=== PATIENT | female | born 1930 | race African-American/Black ===

== ENCOUNTER 2017-05-10 06:08 | Inpatient (IN) ==
--- NOTE | 2017-05-04 13:03 | EKG Report ---
Test Performed on : 05/04/2017 12:55:42 PM Test Reason : PAT Blood Pressure : / mmHG Vent. Rate : 081 BPM Atrial Rate : 081 BPM P-R Int : 154 ms QRS Dur : 072 ms QT Int : 374 ms P-R-T Axes : 060 -17 052 degrees QTc Int : 434 ms Normal sinus rhythm. Possible Left atrial enlargement Anterior infarct , age undetermined Abnormal ECG When compared with ECG of 03-MAY-2016 06:08, premature supraventricular complexes. are no longer present Anterior infarct is now present Criteria for Inferior infarct are no longer present T wave inversion no longer evident in Inferior leads Confirmed by Bhupendra CASTAÑEDA, Trenton Borjas ([id number]) on 05/06/2017 9:13:07 AM
[2017-05-04 13:13] LABS: MANUAL DIFF NEEDED? NO; URINE MICRO REVIEW NEEDED? NO; URINE SOURCE CLEAN CATCH
[2017-05-04 13:26] LABS: BASO% 0.4 % (0.0-0.8); EOS# 0.14 X1000 (0.0-0.7); EOS% 1.1 % (0.0-10.0); HEMATOCRIT 40.6 % (37.0-47.0); HEMOGLOBIN 13.1 g/dL (12.0-16.0); IMM GRAN# 0.03 X1000 (0.0-0.04); IMM GRAN% 0.2 % (0.0-0.5); LYMPH# 2.42 X1000 (1.2-3.4); LYMPH% 19.4 % (20.5-51.1); MCH 28.4 PG (27-31); MCHC 32.3 g/dL (33-37); MCV 88.1 FL (81-99); MONO# 0.86 X1000 (0.11-0.59); MONO% 6.9 % (1.7-9.3); MPV 10.2 FL (7.4-10.4); PLT 277 X1000 (130-400); RBC 4.61 XMIL (4.2-5.4)
[2017-05-04 13:34] LABS: BILIRUBIN URINE NEGATIVE (NEGATIVE); BLOOD URINE TRACE (NEGATIVE); COLOR YELLOW; GLUCOSE URINE NEGATIVE (NEGATIVE); LEUKOCYTES URINE NEGATIVE (NEGATIVE); NITRITE URINE NEGATIVE (NEGATIVE); PH URINE 5.5; PROTEIN URINE NEGATIVE (NEGATIVE); SP GRAVITY URINE 1.018; TURBIDITY URINE CLEAR (CLEAR); UROBILINOGEN URINE NORMAL (NORMAL)
[2017-05-04 13:39] LABS: UR EPITHELIAL CELLS <10 /HPF (<10); URINE BACTERIA 2+ /HPF; URINE RBC <10 /HPF (<10); URINE WBC <10 /HPF (<10)
[2017-05-04 13:42] LABS: INR 1.04; PROTIME 10.9 Seconds (9.2-11.7); PTT 28.1 Seconds (22.0-36.0)
[2017-05-04 14:02] LABS: AGAP 13; BUN 13 mg/dL (8-22); CALCIUM 9.2 mg/dL (8.8-10.2); CHLORIDE 96 mmol/L (98-107); COSMO 271; POTASSIUM 3.9 mmol/L (3.5-5.1); SODIUM 135 mmol/L (136-145); TCO2 26 mmol/L (25-35)
[2017-05-10] MEDS ORDERED: LYRICA ONE (07:11)
[2017-05-10] MEDS ORDERED: CELEBREX ONE (07:11)
[2017-05-10] MEDS ORDERED: REGLAN ONE (07:11)
[2017-05-10] MEDS ORDERED: COLACE ONE (07:11)
[2017-05-10] MEDS ORDERED: PEPCID ONE (07:11)
[2017-05-10] MEDS ORDERED: LR 1,000 ML ONE ×2 (07:12→14:48)
[2017-05-10] MEDS ORDERED: MORPHINE IV PRN (07:13)
[2017-05-10] MEDS ORDERED: KEFZOL 1 GM/D5W 1 GM/50 ML IVPB ONE (07:16)
[2017-05-10] MEDS ORDERED: VANCOMYCIN ONE (08:44)
[2017-05-10] MEDS ORDERED: MARCAINE 0.25% PF/EPI 1:200,000 ONE (08:44)
[2017-05-10] MEDS ORDERED: FENTANYL ONE (08:44)
[2017-05-10] MEDS ORDERED: DIPRIVAN 1% 500 MG/50 ML BOTTLE ONE (08:44)
[2017-05-10] MEDS ORDERED: TORADOL ONE (08:44)
[2017-05-10] MEDS ORDERED: SODIUM CHLORIDE 0.9% ONE (08:45)
[2017-05-10] MEDS ORDERED: CYKLOKAPRON 1,000 MG/NS 1,000 MG/100 ML IVPB ONE ×2 (08:45)
[2017-05-10] MEDS ORDERED: EXPAREL 1.3% ONE (08:45)
[2017-05-10] MEDS ORDERED: NEOSPORIN G.U. IRRIGANT ONE (08:45)
[2017-05-10 10:05] LABS: URINE MICRO REVIEW NEEDED? NO; URINE SOURCE CATH
[2017-05-10 10:09] LABS: BILIRUBIN URINE NEGATIVE (NEGATIVE); BLOOD URINE NEGATIVE (NEGATIVE); COLOR YELLOW; GLUCOSE URINE NEGATIVE (NEGATIVE); LEUKOCYTES URINE NEGATIVE (NEGATIVE); NITRITE URINE NEGATIVE (NEGATIVE); PH URINE 5.5; PROTEIN URINE NEGATIVE (NEGATIVE); SP GRAVITY URINE 1.015; TURBIDITY URINE CLEAR (CLEAR); UROBILINOGEN URINE NORMAL (NORMAL)
[2017-05-10 10:10] LABS: UR EPITHELIAL CELLS <10 /HPF (<10); URINE BACTERIA 1+ /HPF; URINE RBC <10 /HPF (<10); URINE WBC <10 /HPF (<10)
[2017-05-10] MEDS ORDERED: NS 1,000 ML ONE (11:53)
--- NOTE | 2017-05-10 12:46 | Diag Imaging Result Doc PS360 ---
EXAM: KNEE 1-2 VIEWS-RIGHT INDICATION: tka TECHNIQUE: 2 views COMPARISON: None. FINDINGS: There has been a recent right knee arthroplasty. The arthroplasty hardware is in the expected position. There is no evidence of periprosthetic fracture. There are anterior skin keith and a drainage catheter is in place. IMPRESSION: Satisfactory postoperative knee. Electronically signed by Thai Cary 05/10/2017 12:44 PM
--- NOTE | 2017-05-10 13:28 | OPERATIVE NOTE ---
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 PROCEDURE: Right total knee replacement with stemmed prosthesis. SURGEON: Nghia Pettit MD. INTERNAL SALES: Richard Hernandez. ANESTHESIA: Spinal. COMPLICATION: None. PROCEDURE IN DETAIL: This 87-year-old female presents for right total knee replacement. Risks, benefits, and no guarantees were discussed, and she is willing to proceed. She was taken to the operating room and satisfactory anesthesia obtained. The right knee was prepped and draped in usual sterile fashion. A time-out was taken to confirm operative site, procedure, and patient. The leg was wrapped with an Esmarch. Tourniquet inflated to 350 mmHg. A midline incision was made over the right knee and a medial quad tendon sparing arthrotomy created. The patella was everted and resurfaced with freehand technique. This was later sized to a size 35 dome patella and drill paddle prepared for the patellar implant. With the patella subluxed laterally, an intramedullary hole was made in the distal femur and the distal femoral cutting block secured in 5 degrees of valgus. Femoral resection was then made and any osteophytes debrided about the femur. The tibial cutting block was then secured and the tibial resection made using extramedullary alignment hazel. After resection of the tibia, the IT band and lateral retinacular structures were slightly released to improve soft tissue balance to the valgus deformity. Sequential reaming of the tibia was then undertaken up to a 20 reamer. A sequential broaching for revision stem system was then undertaken up to a size 45 metaphyseal sleeve using the [employer] TC 3 revision system. A 20 mm short stem attached to a 45 metaphyseal sleeve and a size 3 tibial base plate were selected with good coverage and stability. Using the tibial cut surface and base plate to tension the soft tissue, the femoral block was secured in the proper rotation and the femur sized to a 2.5 femoral implant. The anterior, posterior and chamfer cuts were sequentially made in the femur followed by box cut for the posterior stabilized design. Any remaining osteophytes were debrided. The femur was then reamed to a 20 mm shaft reamer and metaphyseal broach up to a size 45 femoral sleeves. The femoral trial was placed and a 15 mm poly inserted with good range of motion and stability and midline patellar tracking. Good correction of the valgus deformity was achieved. The trial implants were removed. The bony surfaces thoroughly irrigated with pulsatile lavage. The stemmed tibia and femoral implants were assembled on the back table properly. Cement with a gram of vancomycin was then used to cement the tibial tray followed by the femoral stem and the dome patella into position. While the cement cured, the joint capsule was injected with Exparel for pain management and Hemovac drain placed. After curing of the cement, a 15 mm size 2.5, TC 3 rotating platform poly was secured in the tibial tray and the knee reduced. Final range of motion was 0-120 degrees with midline patellar tracking and good soft tissue balance, as well as correction of valgus deformity. The arthrotomy was copiously irrigated with irrigant and closed over the drain with #1 Vicryl in the arthrotomy, 2-0 Vicryl in the subcutaneous, and skin keith on the skin edges. Sterile dressings completed the closure and the patient was recovered from anesthesia and transferred to the recovery room in stable condition. No intraoperative complications were noted. Instrument count and sponge count was correct at time of closure. cc: Thai Pettit MD
--- NOTE | 2017-05-10 14:32 | PROGRESS NOTE ---
DATE: 05/10/2017 Ms Wilson is seen for postop care status post a total joint replacement. At the present time she is afebrile. The incision and bandage are clean and dry. She is motor and sensory intact. Presently she is stable. She has minimal complaints. cc: Thai Pettit MD
[2017-05-10] MEDS ORDERED: XYLOCAINE-MPF 2% ONE (14:48)
[2017-05-10] MEDS ORDERED: DECADRON ONE (14:48)
[2017-05-10] MEDS ORDERED: ZEMURON ONE (14:48)
[2017-05-10] MEDS ORDERED: OFIRMEV 1000 MG/ISOTONIC SOLN 1,000 MG/100 ML BOTTLE ONE (14:48)
[2017-05-10] MEDS: COLACE PO SCH ×2 (14:52→21:15)
[2017-05-10] MEDS: CELEBREX PO SCH (14:53)
[2017-05-10] MEDS: NS 1,000 ML IV SCH ×2 (15:00→21:14)
[2017-05-10] MEDS: NORCO-10 PO PRN ×2 (16:14→21:15)
[2017-05-10] MEDS: KEFZOL 1 GM/D5W 1 GM/50 ML IVPB IV SCH (16:15)
[2017-05-10] MEDS: LOTREL 5/20 MG PO SCH ×2 (18:51→21:15)
--- NOTE | 2017-05-10 21:11 | CONSULTATION ---
DATE OF CONSULTATION: 05/10/2017 HISTORY OF PRESENT ILLNESS: I was asked to see postoperative medical management. This pleasant lady had right knee arthroplasty with significant osteoarthritis and valgus deformity by Dr. Dykes. Postoperatively patient is not complaining other than some pain, denies of any chest pain, shortness of breath. PAST MEDICAL HISTORY: Atypical chest pain. Last stress test was 2009, hypertension, right ganglion wrist, osteoarthritis in both knees, vitamin D deficiency. PAST SURGICAL HISTORY: Recent right knee arthroplasty. MEDICINES: Aspirin 80 mg daily, Lotrel 5/20 daily, Mobic 15 daily, vitamin D 50 ,000 once a week. ALLERGIES: Not known. SOCIAL HISTORY: , lives in [place]. No smoking. No alcohol. FAMILY HISTORY: Father of stroke at 72, mom of old age at the age of 102. REVIEW OF SYSTEMS: HEENT: No headache, no vision problem. No earache. No sore throat. Neck: No goiter. No lymphadenopathy. No bruit. Cardiopulmonary: No chest pain, shortness of breath, PND, orthopnea. GI: No nausea, vomiting, abdominal pain. : No history of hesitancy, frequency. Extremities: Right knee was operated. Neurological: No focal deficits or weakness. PHYSICAL EXAMINATION: Vital signs: Afebrile, blood pressure is stable, 2 L nasal cannula 100%. HEENT Exam: Within normal limits. Neck: Supple. No lymphadenopathy. No goiter. Chest: Bilateral air entry. No rales, no wheezing. Heart: Sounds are regular. Belly: Is soft, nontender. Good bowel sounds. No masses palpable. Neurological: No deficits. INVESTIGATIONS: CBC. White cell count 12, hematocrit 40, platelets 277,000. PT/INR is normal. SMA 7 is normal. Urinalysis is clear. ASSESSMENT AND PLAN: 1. Postoperatively after right knee arthroplasty. Patient is doing very well. Follow up on the labs in the morning. Control the pain with Celebrex, [place]. 2. Hypertension, is on Lotrel. 3. Deep vein thrombosis prophylaxis on Xarelto. 4. Ancillary support incentive spirometry. Discussed with the family. Follow up on the labs and they will decide soon whether go for rehab or home. Once again, thanks for the kind referral. cc: MD Thai Lawson MD MTDD
[2017-05-10] MEDS: PERIDEX MT SCH (21:15)
[2017-05-11] MEDS: KEFZOL 1 GM/D5W 1 GM/50 ML IVPB IV SCH (00:48)
[2017-05-11] MEDS: NORCO-10 PO PRN ×4 (05:09→21:46)
[2017-05-11] MEDS: XARELTO PO SCH (05:09)
[2017-05-11] MEDS: NS 1,000 ML IV SCH ×2 (05:12→18:52)
[2017-05-11 05:34] LABS: HEMATOCRIT 31.2 % (37.0-47.0); HEMOGLOBIN 9.8 g/dL (12.0-16.0)
[2017-05-11 06:06] LABS: AGAP 11; BUN 16 mg/dL (8-22); CALCIUM 8.8 mg/dL (8.8-10.2); CHLORIDE 102 mmol/L (98-107); COSMO 279; POTASSIUM 5.1 mmol/L (3.5-5.1); SODIUM 138 mmol/L (136-145); TCO2 25 mmol/L (25-35)
[2017-05-11] MEDS: CELEBREX PO SCH (08:56)
[2017-05-11] MEDS: LOTREL 5/20 MG PO SCH (08:56)
[2017-05-11] MEDS: PERIDEX MT SCH ×2 (08:57→21:46)
[2017-05-11] MEDS: COLACE PO SCH ×2 (08:57→21:46)
--- NOTE | 2017-05-11 09:12 | PROGRESS NOTE ---
DATE: 05/11/2017 SUBJECTIVE: Postop day 1 right knee replacement. REVIEW OF SYSTEMS: None reported. No chest pain, shortness of breath. PHYSICAL EXAMINATION: Vital Signs: Afebrile. Vitals are stable. HEENT: Within normal limits. Chest: Clear. Heart: Sounds are regular. Belly is soft, nontender. Good bowel sounds. Neurologic: Nonfocal. INVESTIGATIONS: Hematocrit 32, SMA-7 is normal. Urinalysis is clear. ASSESSMENT AND PLAN: 1. Status post right knee arthroplasty; doing well. 2. Hypertension, controlled. 3. Deep venous thrombosis prophylaxis, on Xarelto. Pain is good on Celebrex and hydrocodone. Continue present medical therapy. Family will decide on Tuesday to go for rehab or going home with outpatient care. LEVEL OF DOCUMENTATION: 10 minutes. cc: MD Thai Lawson MD
[2017-05-11] MEDS: TYLENOL PO PRN (12:01)
[2017-05-11] MEDS ORDERED: ZOFRAN PO PRN (17:04)
[2017-05-11] MEDS ORDERED: ZOFRAN PO ONE (17:04)
[2017-05-12] MEDS: LOTREL 5/20 MG PO SCH ×3 (00:10→21:51)
[2017-05-12] MEDS: NORCO-10 PO PRN ×4 (03:40→17:00)
[2017-05-12 06:17] LABS: HEMATOCRIT 25.8 % (37.0-47.0); HEMOGLOBIN 8.1 g/dL (12.0-16.0)
[2017-05-12] MEDS: XARELTO PO SCH (06:33)
[2017-05-12] MEDS: CELEBREX PO SCH ×2 (08:07→10:55)
[2017-05-12] MEDS: COLACE PO SCH ×2 (08:07→21:51)
[2017-05-12] MEDS: PERIDEX MT SCH ×2 (08:08→21:51)
[2017-05-12] MEDS ORDERED: VENOFER IV ONE (08:55)
--- NOTE | 2017-05-12 09:16 | PROGRESS NOTE ---
DATE: 05/12/2017 SUBJECTIVE: The patient was confused last night. Mental status is clear, and the rest of the review of systems are normal. OBJECTIVE: Vital Signs: On exam, she is afebrile. Vitals are stable. Input and output are positive. HEENT exam: Slightly pale. Neck: Supple. Chest: Clear. Heart: Sounds are regular. Abdomen: Belly is soft, nontender. Good bowel sounds. Neurologic exam: Nonfocal. INVESTIGATIONS: Hematocrit 25. SMA 7 is normal. ASSESSMENT AND PLAN: 1. Delirium. This is not uncommon. Talked to the family. 2. Out of the bed with physical therapy. 3. Anemia due to blood loss. We will give iron infusion today. 4. Hypertension is well controlled. Out of the bed twice a day. Discussed with the family. We will follow up about disposition tomorrow. LEVEL OF DOCUMENTATION: 25 minutes. cc: MD Thai Lawson MD
[2017-05-12] MEDS ORDERED: VENOFER 300 MG in NS 250 ML IV ONE (10:00)
--- NOTE | 2017-05-12 12:43 | PROGRESS NOTE ---
DATE: 05/12/2017 SUBJECTIVE: Ms. Wilson is seen today, postop day 2 status post total knee replacement. OBJECTIVE: Currently, she is awake, afebrile, and appropriate. She had some confusion earlier today. Hematocrit was down to 25, but she is receiving packed red blood cells. At the present time, the incision is clean and dry. There are no signs of infection or DVT. She is slowly mobilized. We discussed going to inpatient rehab tomorrow. Will make arrangements and plan for inpatient rehab at [facility] tomorrow. cc: Thai Pettit MD
[2017-05-13] MEDS ORDERED: BLISTEX MEDICATED BERRY LIP BALM TOP PRN (00:18)
[2017-05-13 06:01] LABS: MANUAL DIFF NEEDED? NO
[2017-05-13 06:36] LABS: AGAP 10; BUN 12 mg/dL (8-22); CALCIUM 8.8 mg/dL (8.8-10.2); CHLORIDE 99 mmol/L (98-107); COSMO 270; POTASSIUM 4.9 mmol/L (3.5-5.1); SODIUM 135 mmol/L (136-145); TCO2 26 mmol/L (25-35)
[2017-05-13 06:48] LABS: BASO% 0.2 % (0.0-0.8); EOS# 0.44 X1000 (0.0-0.7); HEMATOCRIT 26.3 % (37.0-47.0); HEMOGLOBIN 8.3 g/dL (12.0-16.0); IMM GRAN# 0.05 X1000 (0.0-0.04); IMM GRAN% 0.3 % (0.0-0.5); LYMPH# 1.88 X1000 (1.2-3.4); LYMPH% 12.9 % (20.5-51.1); MCH 27.9 PG (27-31); MCHC 31.6 g/dL (33-37); MCV 88.6 FL (81-99); MONO# 1.66 X1000 (0.11-0.59); MONO% 11.4 % (1.7-9.3); NEUT% 72.2 % (42.2-75.2); PLT 168 X1000 (130-400); RBC 2.97 XMIL (4.2-5.4)
[2017-05-13] MEDS: XARELTO PO SCH (07:01)
[2017-05-13] MEDS: TYLENOL PO PRN ×2 (07:01→21:28)
[2017-05-13] MEDS ORDERED: ULTRAM PO PRN (07:56)
--- NOTE | 2017-05-13 08:17 | PROGRESS NOTE ---
DATE: 05/13/2017 SUBJECTIVE: Ms Wilson is seen for postop care status post total knee. Currently, she is afebrile with stable vital signs. She has had some intermittent confusion which appears to be due to pain medicine and mild sundowning. She has no temperature. Her vital signs are stable. She did have a slight increase in her white count up to 14. OBJECTIVE: Examination of the knee reveals no evidence of infection. There is minimal swelling. There is good range of motion. The incision is clean and dry. ASSESSMENT AND PLAN: From my standpoint, she can go to rehab today. This is pending medical clearance by Dr. Dykes. If he feels otherwise she needs to remain in the hospital, we will be happy to keep her in the hospital. Rehab orders are written. We will follow up with her upon discharge. We will discontinue or decrease her pain management due to the confusion and place her on some antibiotics for prophylaxis for any urinary tract infection or other condition. cc: Thai Pettit MD
[2017-05-13] MEDS: LOTREL 5/20 MG PO SCH ×2 (09:10→21:29)
[2017-05-13] MEDS: DOXYCYCLINE PO SCH ×2 (09:10→21:29)
[2017-05-13] MEDS: PERIDEX MT SCH ×2 (09:10→21:28)
[2017-05-13] MEDS: COLACE PO SCH ×2 (09:10→21:29)
[2017-05-13] MEDS: CELEBREX PO SCH (09:10)
--- NOTE | 2017-05-13 12:27 | DISCHARGE SUMMARY ---
ADMISSION DATE: 05/10/2017 DISCHARGE DATE: 05/13/2017 ADMITTING DIAGNOSIS: Degenerative joint disease of the right knee. ADDITIONAL DIAGNOSES: 1. History of hypertension. 2. Rheumatism. 3. Stroke in the past. DISCHARGE DIAGNOSES: 1. Degenerative joint disease of the right knee. 2. History of hypertension. 3. Rheumatism. 4. Stroke in the past. ADMITTING HISTORY AND HOSPITAL COURSE: An 87-year-old female with severe DJD about the right knee who was admitted and underwent a right knee replacement without complication. Postoperatively, she was slowly mobilized. She did have a drop in her hematocrit, however, currently is stable with afebrile and stable vital signs. She received some iron for some iron deficiency anemia. She has had some confusion, which is improved with modifying her pain management to decrease any narcotics. At the present time, she is stable with the incision clean and dry. No redness or warmth. She is transferred to rehab today for continued convalescent care and strength training. DISCHARGE MEDICATIONS: Include Ultram 50 mg 1 every 6 hours p.r.n. pain, [place] 5 one every 6 hours p.r.n. severe pain, Xarelto 10 mg daily for 2 weeks. Continuing her home medicines of amlodipine/benazepril 5/20 one tablet b.i.d., Colace 100 mg b.i.d., doxycycline 100 mg b.i.d. for 10 days for wound prophylaxis, Zofran 4 mg every 6 hours p.r.n. nausea. DISCHARGE INSTRUCTIONS: She can be mobilized full weightbearing on the lower extremity. Sun can be removed in 10 days. She is to follow up with Dr. Pettit upon discharge. cc: Thai Pettit MD
--- NOTE | 2017-05-13 15:02 | Diag Imaging Result Doc PS360 ---
CHEST-PORTABLE - 05/13/2017 INDICATION: REHAB TECHNIQUE: COMPARISON: 02/15/2017 FINDINGS: Lung volumes are critically low with minimal bibasilar atelectasis. Stable calcified granuloma at the right hilar region. No substantial infiltrates. IMPRESSION: Critically low lung volumes but otherwise no acute disease. Electronically signed by Josué Ballard 05/13/2017 2:59 PM
--- NOTE | 2017-05-13 17:27 | PROGRESS NOTE ---
DATE: 05/13/2017 SUBJECTIVE: The patient was seen by Dr. Pettit. Apparently, elevated white cell count. No fever. Ordered a chest x-ray, started empirically on doxycycline. She is slightly weak and pale. She was given IV iron infusion yesterday. Right knee site slightly puffy. No signs of infection noted. REVIEW OF SYSTEMS: No cough, no UTI symptoms. OBJECTIVE: Vital Signs: Febrile, low-grade fever. Her vital signs are stable. Skin: Slightly pale. Chest: Clear. Heart: Sounds are regular. Abdomen: Belly is soft, nontender. Good bowel sounds. Neurological: No neurological deficits noted. INVESTIGATIONS: White cell count 14, hematocrit 26, platelets 168,000. SMA-7: Sodium 135, potassium 4.9, chloride 99, BUN 12, creatinine 0.5, and calcium 8.8. Chest x-ray was obtained, low lung volumes, no acute disease. ASSESSMENT AND PLAN: 1. Anemia due to postoperative blood loss. Transfuse 1 unit of blood. Keep the hematocrit close to about 26. 2. Hypertension, stable. 3. Elevated white cell count, empirically on doxycycline. 4. I discussed the plan of care. If she is stable, we will discharge her home either today evening or in the morning. Paperwork was done. LEVEL OF DOCUMENTATION: 25 minutes. cc: MD Thai Lawson MD
[2017-05-14 06:13] LABS: MANUAL DIFF NEEDED? NO
[2017-05-14 06:21] LABS: BASO% 0.4 % (0.0-0.8); EOS# 0.75 X1000 (0.0-0.7); EOS% 4.9 % (0.0-10.0); HEMATOCRIT 29.4 % (37.0-47.0); HEMOGLOBIN 9.6 g/dL (12.0-16.0); IMM GRAN# 0.06 X1000 (0.0-0.04); IMM GRAN% 0.4 % (0.0-0.5); LYMPH# 2.33 X1000 (1.2-3.4); LYMPH% 15.3 % (20.5-51.1); MCH 28.4 PG (27-31); MCHC 32.7 g/dL (33-37); MONO# 1.44 X1000 (0.11-0.59); MONO% 9.4 % (1.7-9.3); MPV 10.8 FL (7.4-10.4); NEUT% 69.6 % (42.2-75.2); PLT 203 X1000 (130-400); RBC 3.38 XMIL (4.2-5.4)
[2017-05-14 06:43] LABS: AGAP 11; BUN 12 mg/dL (8-22); CALCIUM 8.7 mg/dL (8.8-10.2); CHLORIDE 102 mmol/L (98-107); COSMO 275; POTASSIUM 4.8 mmol/L (3.5-5.1); SODIUM 138 mmol/L (136-145); TCO2 25 mmol/L (25-35)
[2017-05-14] MEDS: XARELTO PO SCH (06:43)
[2017-05-14 07:23] LABS: SED RATE 40 mm/hr (0-20)
[2017-05-14] MEDS ORDERED: MILK OF MAGNESIA PO ONE (09:45)
[2017-05-14] MEDS: DOXYCYCLINE PO SCH ×2 (10:43→22:21)
[2017-05-14] MEDS: CELEBREX PO SCH ×2 (10:44→12:59)
[2017-05-14] MEDS: PERIDEX MT SCH ×2 (10:45→22:22)
[2017-05-14] MEDS: LOTREL 5/20 MG PO SCH ×2 (10:45→22:22)
[2017-05-14] MEDS: DULCOLAX PR ONE ×2 (10:45→11:11)
[2017-05-14] MEDS: COLACE PO SCH ×2 (10:45→22:21)
--- NOTE | 2017-05-14 10:55 | PROGRESS NOTE ---
DATE: 05/14/2017 SUBJECTIVE: Melvi Wilson is an 87-year-old female patient of Dr. Pettit'linnea who underwent a right total knee arthroplasty. She has no complaints. Her family is concerned about redness and warmth and bruising. OBJECTIVE: She is a well-developed, well-nourished female. She is alert, oriented, and cooperative to exam. She has range of motion from 10-60 degrees. Her wound is clean, dry, intact without sign of any drainage. There is mild erythema proper for the surgery. There is mild bruising as is appropriate as well. I feel no significant swelling or fluctuance. There is a normal amount warmth about knee as well. LABORATORY DATA: She does have white count of 15.000. ASSESSMENT: Stable right total knee arthroplasty. PLAN: From an orthopedic standpoint, I am fine with her going to rehab. Dr. Maldonado has seen her for Dr. Pettit and feels that she needs to stay and have further workup on her elevated white count. I will leave that to his discretion. Otherwise she will go to rehab. cc: MD Thai Hannah MD
--- NOTE | 2017-05-14 11:58 | PROGRESS NOTE ---
DATE: 05/14/2017 SUBJECTIVE: Ms. Wilson is doing fair. The patient is status post right total knee arthroplasty. She denied any fever or chills. The patient did not have bowel movement since admission. The patient's family was concerned. The patient does have leukocytosis. OBJECTIVE: Vital signs: Revealed. T-max yesterday was 99.1. Chest x-ray revealed low lung volume. Discussed with Dr. Marr. Her wound looks okay. Family member does have a few question and concerns about going to rehab. Her vital signs noted. Neck: Supple. No JVD. Lungs: Bilateral good air entry present. Cardiovascular: S1 and S2 heard. Abdomen: Soft, nontender. Bowel sounds present. VERIFICATION LEAD: Alert, awake. Answering questions fairly well. LABORATORY DATA: Today did reveal leukocytosis with some left shift. Hemoglobin 9.6, hematocrit 29.4. Sedimentation rate was 40. Electrolytes were benign. ASSESSMENT: 1. Leukocytosis no apparent source of infection. 2. Hypertension. Patient is on Lotrel. The patient is on doxycycline. 3. Constipation. 4. She is on DVT prophylaxis. PLAN: We did discuss about discharge. Considering her overall clinical condition, I did discuss with family multiple times and we decided to hold discharge today, give her something for constipation and incentive spirometry. Repeat blood work on Tuesday and then plan discharge on Tuesday and family was in agreement. cc: MD Thai Scales MD
[2017-05-14] MEDS: TYLENOL PO PRN (17:14)
[2017-05-15] MEDS: TYLENOL PO PRN ×2 (05:28→11:43)
[2017-05-15] MEDS: XARELTO PO SCH (05:29)
[2017-05-15] MEDS ORDERED: LINZESS PO ONE (08:56)
--- NOTE | 2017-05-15 10:07 | PROGRESS NOTE ---
DATE: 05/15/2017 SUBJECTIVE: Ms. Wilson is doing fair. The patient does feel some better today. Complaining of bruise emma around the right knee surgery site with some local warmth. She had a small bowel movement yesterday. No nausea or vomiting. Oral intake is fair. No typical chest pain. No high- grade fever or chills. PHYSICAL EXAMINATION: Vital Signs: Her vital signs noted. Neck: Supple. No JVD. Lungs: Bilateral good air entry present. CVS: S1 and S2 heard. Abdomen: Soft. No distention. Bowel sounds present. Extremities: No cyanosis, clubbing. No acute DVT. Patient does have bruise emma on the right knee around the surgery site. Local warmth on the right knee incision. PATIENT CARE DIRECTOR: Alert, awake. Able to move all 4 limbs. CONSIDERATION: 1. Right knee total knee arthroplasty. Doing fair. 2. Constipation. 3. Blood loss anemia, status post blood transfusion. 4. The patient is on oral antibiotics. 5. Hypertension. PLAN: I am going to try a small dose of Linzess. Continue rest of the treatment. Close observation. Fall precaution. Overall plan discussed with the patient and family. I am going to repeat chest x-ray and blood work tomorrow because of leukocytosis. cc: MD Thai Scales MD
[2017-05-15] MEDS: COLACE PO SCH ×2 (10:28→21:21)
[2017-05-15] MEDS: PERIDEX MT SCH ×2 (10:29→21:22)
[2017-05-15] MEDS: DOXYCYCLINE PO SCH ×2 (10:29→21:21)
[2017-05-15] MEDS: LOTREL 5/20 MG PO SCH ×2 (10:29→21:21)
[2017-05-15] MEDS: CELEBREX PO SCH (10:30)
--- NOTE | 2017-05-15 10:40 | PROGRESS NOTE ---
DATE: 05/15/2017 SUBJECTIVE: Melvi Wilson is an 87-year-old female who is postoperative day 5 from a right total knee arthroplasty. She complains of bruising and pain about her knee. OBJECTIVE: She is a well-developed, well-nourished female. She is alert, oriented, and cooperative with the exam. Her wound is clean, dry, and intact without sign of infection. She has mild warmth and erythema, appropriate for the surgery. She has posterior bruising of the leg, which is appropriate as well. Her leg is neurovascularly intact. There is no sign of deep venous thrombosis or infection. ASSESSMENT: Stable right total knee arthroplasty. PLAN: She will likely be transferred to rehab tomorrow if cleared by her family physician. cc: MD Thai Hannah MD
[2017-05-15] MEDS: NORCO-5 PO PRN ×2 (14:20→21:22)
[2017-05-16] MEDS: XARELTO PO SCH (05:39)
[2017-05-16] MEDS: NORCO-5 PO PRN ×2 (05:40→11:23)
[2017-05-16 05:57] LABS: MANUAL DIFF NEEDED? NO
[2017-05-16 06:03] LABS: BASO% 0.5 % (0.0-0.8); EOS# 0.65 X1000 (0.0-0.7); EOS% 5.2 % (0.0-10.0); HEMATOCRIT 28.9 % (37.0-47.0); HEMOGLOBIN 9.2 g/dL (12.0-16.0); IMM GRAN# 0.07 X1000 (0.0-0.04); IMM GRAN% 0.6 % (0.0-0.5); LYMPH# 2.09 X1000 (1.2-3.4); LYMPH% 16.6 % (20.5-51.1); MCH 27.9 PG (27-31); MCHC 31.8 g/dL (33-37); MCV 87.6 FL (81-99); MONO# 1.58 X1000 (0.11-0.59); MONO% 12.5 % (1.7-9.3); MPV 9.8 FL (7.4-10.4); NEUT% 64.6 % (42.2-75.2); PLT 303 X1000 (130-400)
[2017-05-16 06:21] LABS: AGAP 12; ALBUMIN 3.1 g/dL (3.5-5.0); ALKALINE PHOSPHATASE 63 U/L (32-104); BUN 13 mg/dL (8-22); CALCIUM 8.8 mg/dL (8.8-10.2); CHLORIDE 98 mmol/L (98-107); COSMO 270; GOT 9 U/L (10-30); GPT 8 U/L (10-36); POTASSIUM 4.8 mmol/L (3.5-5.1); SODIUM 135 mmol/L (136-145); TCO2 25 mmol/L (25-35); TOTAL BILIRUBIN 0.77 mg/dL (0.20-1.00); TOTAL PROTEIN 6.3 g/dL (6.3-8.3)
[2017-05-16] MEDS: LOTREL 5/20 MG PO SCH (08:19)
[2017-05-16] MEDS: COLACE PO SCH (08:19)
[2017-05-16] MEDS: PERIDEX MT SCH (08:19)
[2017-05-16] MEDS: DOXYCYCLINE PO SCH (08:19)
[2017-05-16] MEDS: CELEBREX PO SCH (08:19)
--- NOTE | 2017-05-16 09:37 | Diag Imaging Result Doc PS360 ---
EXAM: CHEST-2 VIEWS HISTORY: hypoxia TECHNIQUE: Upright AP and lateral COMPARISON: 05/13/2017 FINDINGS: The lungs are better expanded on the current exam. Tortuous thoracic aorta. The heart is borderline mildly prominent. The vessels are not distended. No pleural effusions. There are calcified right paratracheal lymph nodes. No pneumonia. IMPRESSION: No acute abnormality. Electronically signed by Lalo Banks 05/16/2017 9:34 AM
[2017-05-16 11:07] VITALS: BP 129/76
--- NOTE | 2017-05-16 19:03 | PROGRESS NOTE ---
DATE: 05/16/2017 SUBJECTIVE: Events noted over the weekend. Patient and family decided to go for rehab. During the weekend patient was stable. No significant complaints. Chest x-ray was done, no acute abnormality. REVIEW OF SYSTEMS: None reported. PHYSICAL EXAMINATION: Vital Signs: She is afebrile, pulse is 85, respirations 18, blood pressure is 129/76, 100% on room air. HEENT: Within normal limits. Neck: Supple. Chest: Clear. Heart: Sounds are regular. Abdomen: Belly is soft, nontender. Good bowel sounds. No masses palpable. Extremities: No peripheral edema, cyanosis, or clubbing. Right knee, soft tissue swelling. No signs of infection noted. INVESTIGATIONS: CBC: White cell count 12.6, hematocrit 29, platelets 303,000. SMA 12 is normal. ASSESSMENT AND PLAN: 1. Status post right knee arthroplasty, stable. Family decided to go for rehab. 2. Anemia due to blood loss. Status post 2 units of packed RBCs and iron infusions. Stable. 3. Hypertension is controlled. 4. Constipation. Give her some Linzess stool softeners. Discussed with the social work instructor that she wants to go for rehab. Will be discharged today and follow up as an outpatient. LEVEL OF DOCUMENTATION: 15 minutes. cc: MD Thai Lawson MD
--- NOTE | 2017-05-17 03:40 | DISCHARGE SUMMARY ---
ADMISSION DATE: 05/10/2017 DISCHARGE DATE: 05/16/2017 ADDENDUM REPORT Ms. Wilson was kept through the weekend for additional convalescent care by her family physician. She is cleared by Orthopedics for discharge today on 05/16/2017. We will see her back in our office in approximately 10 days. Dictated by CORTES Edwards for Thai Pettit MD cc: CORTES Edwards MD
== END 2017-05-16 14:34 ==
LOC: SURHOLD 06:08 → 4N 12:38
PROVIDERS: ADMIT Orthopaedic Surgery Adult Reconstructive Orthopaedic Surgery; ATTEND Orthopaedic Surgery Adult Reconstructive Orthopaedic Surgery

== ENCOUNTER 2018-12-29 12:12 | Inpatient (IN) ==
[~2018-12-29 12:12] MED LIST: BENADRYL IV ONE; NARCAN IV ONE; NORCURON ONE; NS 1,000 ML IV ONE; SOLU-MEDROL IV ONE; STERILE WATER INJ. ONE; VERSED ONE
[2018-12-29 12:17] LABS: BASO# 0.03 X1000 (0.0-0.2); BASO% 0.3 % (0.0-0.8); EOS% 0.9 % (0.0-10.0); HEMATOCRIT 39.6 % (37.0-47.0); IMM GRAN# 0.09 X1000 (0.0-0.04); IMM GRAN% 0.8 % (0.0-0.5); LYMPH# 4.68 X1000 (1.2-3.4); LYMPH% 43.8 % (20.5-51.1); MCH 28.3 PG (27-31); MCHC 32.8 g/dL (33-37); MCV 86.1 FL (81-99); MONO# 0.46 X1000 (0.11-0.59); MONO% 4.3 % (1.7-9.3); NEUT# 5.33 X1000 (1.4-6.5); NEUT% 49.9 % (42.2-75.2); PLT 326 X1000 (130-400); RDW 12.9 % (11.5-14.5); WBC 10.69 X1000 (4.8-10.8)
[2018-12-29] MEDS ORDERED: EPINEPHRINE 8 MG in D5W 250 ML IV SCH ×2 (12:30→18:00)
[2018-12-29] MEDS ORDERED: NS 1,000 ML IV ONE (12:30)
[2018-12-29] MEDS ORDERED: NS 500 ML IV ONE (12:30)
[2018-12-29] MEDS ORDERED: ZOSYN 3.375 GM in NS 50 ML IV ONE (12:30)
[2018-12-29] MEDS ORDERED: VANCOMYCIN 1 GM/NS 1 GM/250 ML IVPB IV ONE (12:30)
--- NOTE | 2018-12-29 12:38 | Diag Imaging Result Doc PS360 ---
EXAM: CT HEAD W/O CONTRAST - 12/29/2018 HISTORY: ams TECHNIQUE: CT head without contrast COMPARISON: 05/02/2016 FINDINGS: There are chronic microvascular ischemic changes. There is no indication of recent infarct, although acute infarcts may not be immediately visible. There are atherosclerotic calcifications noted at the base the brain. There is tortuosity of the basilar artery noted similar to prior. There is no evidence of intracranial hemorrhage, mass effect, midline shift, or hydrocephalus. There is no evidence of skull fracture. Visualized portions of paranasal sinuses and mastoid air cells appear clear. IMPRESSION: Chronic microvascular ischemic changes. No visible acute intracranial abnormality. No hemorrhage or mass effect. This exam was performed using automated exposure control, adjustment of mA or kV according to patient size, and/or use of iterative reconstruction technique. Electronically signed by Duc Bergeron 12/29/2018 12:36 PM
--- NOTE | 2018-12-29 12:38 | PROVIDER DOCUMENTATION ---
This chart was entered by Luisa Polk Scribe, acting as scribe for Sumeet Dangelo MD. [facility]-Critical Care - General Chief Complaint: Altered Mental Status Stated Complaint: Syncopal episode, Poss. Allergic reaction Time Seen by Provider: 12/29/18 12:12 Patient arrived via EMS?: Yes Source: family, EMS Allergies/Adverse Reactions: Allergies Allergy/AdvReac Type Severity Reaction Status Date / Time sulfamethoxazole Allergy Severe ANAPHYLAXIS Verified 06/01/18 12:36 [From Bactrim] trimethoprim [From Bactrim] Allergy Severe ANAPHYLAXIS Verified 06/01/18 12:36 codeine AdvReac VOMITING Verified 05/10/17 07:20 Home Medications: Home Medication List Medication Instructions Recorded Confirmed Last Taken Type Amlodipine Besylate/Benazepril 1 tab PO DAILY 10/07/13 05/10/17 06/01/18 History [Amlodipine-Benazepril 5-20 mg] Acetaminophen [Tylenol] 650 mg PO Q6H PRN PRN #0 tablet 05/13/17 06/01/18 Unknown Rx Ergocalciferol (Vitamin D2) 50,000 unit PO Q7D #12 cap 06/02/18 Unknown Rx [Vitamin D] - History of Present Illness-Critical Care Nature of Presenting Problem: 88 yoBf with history of CVA, CAD (S/P UT),and DM who presents by EMS unresponsive,hypotensive, with shallow labored respirations. EMS states pt called family 15mins prior to their arrival c/o not feeling well and bad headache, so family called EMS. EMS report initial sat of 57%. Pt was seen on at [facility] for UTI, given Bactrim and had an allergic reaction that required SQ Epi. Pt saw family yesterday who gave pt generic of Bactrim. Onset of symp per family was 11:40. Review of Systems - Adult - REVIEW OF SYSTEMS - ADULT ROS:: unobtainable per condition Constitutional: reports: no symptoms reported Eyes: reports: no symptoms reported Ears, Nose, Mouth & Throat: reports: no symptoms reported Cardiovascular: reports: no symptoms reported Respiratory: reports: no symptoms reported Gastrointestinal: reports: no symptoms reported Genitourinary: reports: no symptoms reported Musculoskeletal: reports: no symptoms reported Integumentary: reports: no symptoms reported Neurological: reports: other (unresponsive) Psychiatric: reports: no symptoms reported Endocrine: reports: no symptoms reported Hematologic/Lymphatic: reports: no symptoms reported Allergic/Immunologic: reports: no symptoms reported All Other Systems: Reviewed and Negative Past History - Adult - PAST MEDICAL HISTORY-ADULT Review of Records: reports: Nursing Assessment Review, Medications Reviewed Major Childhood Illnesses: reports: denies history Cardiovascular: reports: CAD, HTN, [place] Respiratory: reports: denies history Gastrointestinal: reports: denies history Obstetrical/Gynecological: reports: denies history Genitourinary: reports: denies history Musculoskeletal: reports: denies history Neurological: reports: CVA Endocrine/Immune: reports: Diabetes Other Conditions: reports: denies history - PRIOR SURGERIES/PROCEDURES Surgical/Procedure History: reports: cardiac stent, joint replacement (total knee) - PRIOR HOSPITALIZATIONS Prior Hospitalizations: reports: for other non-related - IMMUNIZATION STATUS Childhood Immunizations: See Nurse Assessment Flu Vaccine: See Nurse Assessment - FAMILY HISTORY Family History: reviewed, not pertinent Physical Exam-General - PHYSICAL EXAM-ADULT Initial Vital Signs Reviewed: Yes - CONSTITUTIONAL General Appearance: severe distress, other (unresponsive) - EYES Eyes: other (sluggush and constricted) - HEAD, EARS, NOSE, MOUTH & THROAT HENMT: other (patent) - NECK Neck: supple - RESPIRATORY Respiratory: respiratory distress, accessory muscle use (use of abdominal muscles), other (shallow respirations, labored breathing) - CARDIOVASCULAR Cardiovascular: tachycardia - GASTROINTESTINAL (ABDOMEN) Abdominal Exam: soft - MUSCULOSKELETAL Back Exam: normal inspection Extremity: normal inspection - SKIN Integumentary: other (decreased turgor) - NEUROLOGIC Neurologic: other (unresponsive, nonfocal) - PSYCHIATRIC Psych/Mental Status: other (unresponsive) Progress - PLAN OF CARE/RESULTS Progress/Plan/Lab Results: Vital Signs - 8 hr 12/29/18 11:50 12/29/18 12:00 12/29/18 12:20 Pulse Rate 145 H Respiratory Rate 28 H O2 Sat by Pulse Oximetry 100 100 100 12/29/18 12:35 12/29/18 13:00 Pulse Rate Respiratory Rate O2 Sat by Pulse Oximetry 100 100 Laboratory Results - last 24 hr 12/29/18 12/29/18 12/29/18 12:04 12:05 12:10 WBC 10.69 RBC 4.60 Hgb 13.0 Hct 39.6 MCV 86.1 MCH 28.3 MCHC 32.8 L RDW Std Deviation 12.9 Plt Count 326 MPV 10.0 Immature Gran % (Auto) 0.8 H Neut % (Auto) 49.9 Lymph % (Auto) 43.8 [place] % (Auto) 4.3 Eos % (Auto) 0.9 Baso % (Auto) 0.3 Immature Gran # (Auto) 0.09 H Neut # (Auto) 5.33 Lymph # (Auto) 4.68 H [place] # (Auto) 0.46 Eos # (Auto) 0.10 Baso # (Auto) 0.03 Specimen Type Sample Site pH pCO2 pO2 HCO3 Base Excess Oxyhemoglobin ABG O2 Sat (Calculated) ABG O2 Saturation ABG Carboxyhemoglobin ABG Methemoglobin Christiano Test A-a O2 Difference Total Hemoglobin Lactate Blood Gas Modality Vent Mode Spontaneous Rate FiO2 % Tidal Volume PEEP Sodium Potassium Chloride POC Glucose 152 H Troponin T Plasma Lactate 1.6 Urine Source Urine Color Urine Clarity Urine pH Ur Specific [place] Urine Protein Urine Ketones Urine Blood Urine Nitrite Urine Bilirubin Urine Urobilinogen Urine Microscopic RBC Urine WBC Urine Microscopic WBC Ur Epithelial Cells Urine Bacteria Urine Glucose 12/29/18 12/29/18 12/29/18 12:10 12:10 12:45 WBC RBC Hgb Hct MCV MCH MCHC RDW Std Deviation Plt Count MPV Immature Gran % (Auto) Neut % (Auto) Lymph % (Auto) [place] % (Auto) Eos % (Auto) Baso % (Auto) Immature Gran # (Auto) Neut # (Auto) Lymph # (Auto) [place] # (Auto) Eos # (Auto) Baso # (Auto) Specimen Type ARTERIAL Sample Site R RADIAL pH 7.41 pCO2 37 pO2 460 H HCO3 24.2 Base Excess -0.9 Oxyhemoglobin 96.4 ABG O2 Sat (Calculated) 16.9 ABG O2 Saturation 100.1 H ABG Carboxyhemoglobin 1.70 ABG Methemoglobin 2.0 H Christiano Test YES A-a O2 Difference 207.0 Total Hemoglobin 11.5 Lactate 2.80 H Blood Gas Modality VENTILATOR Vent Mode A/C Spontaneous Rate 14 FiO2 % 100.0 Tidal Volume 500 PEEP 5.0 Sodium 142 Potassium 3.2 L Chloride 103 POC Glucose Troponin T < 0.010 Plasma Lactate Urine Source Urine Color Urine Clarity Urine pH Ur Specific [place] Urine Protein Urine Ketones Urine Blood Urine Nitrite Urine Bilirubin Urine Urobilinogen Urine Microscopic RBC Urine WBC Urine Microscopic WBC Ur Epithelial Cells Urine Bacteria Urine Glucose 12/29/18 13:05 WBC RBC Hgb Hct MCV MCH MCHC RDW Std Deviation Plt Count MPV Immature Gran % (Auto) Neut % (Auto) Lymph % (Auto) [place] % (Auto) Eos % (Auto) Baso % (Auto) Immature Gran # (Auto) Neut # (Auto) Lymph # (Auto) [place] # (Auto) Eos # (Auto) Baso # (Auto) Specimen Type Sample Site pH pCO2 pO2 HCO3 Base Excess Oxyhemoglobin ABG O2 Sat (Calculated) ABG O2 Saturation ABG Carboxyhemoglobin ABG Methemoglobin Christiano Test A-a O2 Difference Total Hemoglobin Lactate Blood Gas Modality Vent Mode Spontaneous Rate FiO2 % Tidal Volume PEEP Sodium Potassium Chloride POC Glucose Troponin T Plasma Lactate Urine Source CATH Urine Color YELLOW Urine Clarity SL. CLOUDY A Urine pH 8.0 Ur Specific [place] 1.010 Urine Protein TRACE A Urine Ketones NEGATIVE Urine Blood 1+ A Urine Nitrite NEGATIVE Urine Bilirubin NEGATIVE Urine Urobilinogen NORMAL Urine Microscopic RBC 10-20 A Urine WBC NEGATIVE Urine Microscopic WBC 20-40 A Ur Epithelial Cells <10 Urine Bacteria 2+ Urine Glucose NEGATIVE Orders Category Date Time Status Cardiac Monitoring DIRECTED Care 12/29/18 12:04 Active FSBS/Accucheck Result NOW Care 12/29/18 12:01 Active Rivera Cath Insertion ORDERED Care 12/29/18 12:30 Active ICU Vent Assessment Q 4-HR ASSESS Care 12/29/18 12:01 Active Intake and Output-Strict ORDERED Care 12/29/18 12:30 Active Intubate Patient NOW Care 12/29/18 12:01 Active Notify MD/PA/MAKENNA for exam NOW Care 12/29/18 12:30 Active Repeat Vital Signs .Blood Pressure Care 12/29/18 12:30 Active Repeat Vital Signs .Heart Rate Care 12/29/18 12:30 Active Repeat Vital Signs .Oxygen Saturation Care 12/29/18 12:30 Active Repeat Vital Signs .Respiratory Rate Care 12/29/18 12:30 Active Repeat Vital Signs .Temp Care 12/29/18 12:30 Active NPO Diet 12/29/18 12:01 Active CHEST-PORTABLE [RAD] Stat Exams 12/29/18 12:[address] HEAD W/O CONTRAST [CT] Stat Exams 12/29/18 12:03 Completed ABG [RESP] Routine Lab 12/29/18 12:45 Completed BLOOD CULTURE [BLDCUL] Stat Lab 12/29/18 13:28 Ordered CBC WITH ELECTRONIC DIFF [HEME] Stat Lab 12/29/18 12:05 Completed CMP [COMPREHENSIVE METABOLIC PANEL] [CHEM] Stat Lab 12/29/18 12:10 Results LACTATE, PLASMA [CHEM] Timed Lab 12/29/18 12:10 Completed TROPONIN T Stat Lab 12/29/18 12:[address] W/POSS RFLX CULT [URINALYSIS] Stat Lab 12/29/18 13:05 Completed URINE CULTURE [RM] Routine Lab 12/29/18 13:43 Ordered 0.9% Sodium Chloride Inj [Ns] 1,000 ml Med 12/29/18 12:00 Discontinued IV 999 mls/hr 0.9% Sodium Chloride Inj [Ns] 1,000 ml Med 12/29/18 12:30 Discontinued IV As Directed 0.9% Sodium Chloride Inj [Ns] 500 ml Med 12/29/18 12:30 Discontinued IV 999 mls/hr 0.9% Sodium Chloride Inj [Ns] 80 ml Med 12/29/18 13:00 Active Midazolam [Versed] 100 mg IV As Directed Dextrose 5%-Water Inj [D5w] 250 ml Med 12/29/18 12:30 Active Epinephrine 8 mg IV As Directed Diphenhydramine [Benadryl] Med 12/29/18 12:00 Discontinued 50 mg IV NOW ONE Labetalol Med 12/29/18 14:08 Discontinued 20 mg IV NOW ONE Methylprednisolone Sod Succ [Solu-Medrol] Med 12/29/18 12:00 Discontinued 125 mg IV NOW ONE Midazolam [Versed] Med 12/29/18 12:05 Discontinued 5 mg .ROUTE .STK-MED ONE Midazolam [Versed] Med 12/29/18 13:21 Discontinued 5 mg .ROUTE .STK-MED ONE Midazolam [Versed] Med 12/29/18 14:04 Discontinued 5 mg IV NOW ONE Naloxone [Narcan] Med 12/29/18 12:00 Discontinued 1 mg IV NOW ONE Piperacillin/Tazobactam [Zosyn] 3.375 gm Med 12/29/18 12:30 Discontinued 0.9% Sodium Chloride Inj [Ns] 50 ml IV NOW Propofol [Diprivan 1%] Med 12/29/18 13:29 Discontinued 10 mg IV STAT ONE Propofol [Diprivan 1%] Med 12/29/18 13:27 Discontinued 1,000 mg in 100 ml .ROUTE As Directed Propofol [Diprivan 1%] Med 12/29/18 13:30 Active 1,000 mg in 100 ml IV As Directed Vancomycin 1 gm/Ns Med 12/29/18 12:30 Discontinued 1 gm in 250 ml IV NOW Vecuronium [Norcuron] Med 12/29/18 12:05 Discontinued 10 mg .ROUTE .STK-MED ONE Water, Sterile Inj [Sterile Water Inj] Med 12/29/18 12:08 Discontinued 10 ml .ROUTE .STK-MED ONE Ventilator Order Stat Oth 12/29/18 12:01 Active EKG [EKG] Stat Ther 12/29/18 12:03 Draft pt arrived at ED at 12:00pm 12:00 narcan administered 12:07 125mg solumedryl 12:07 50mg benadryl 12:10 117/70 12:10 EKG 12:10 Zofran 12:12 .5mg IV epi 12:13 5mg Versed 12:14 7mg Vec 12:15 pt was intubated good cap change, lungs clear, equal bilaterally 22 at the lip right side see vent settings core temp 95.7 Nurses put bear hugger on pt 2:13 5mg Versed Pt family has been at bedside continually since pt arrival Result Diagrams: 12/29/18 12:05 12/29/18 12:10 - REASSESSMENT Reassessment #1 Time Reassessed: 13:33 (hr 73, b/p 209/122, sats 100%) Status: unchanged Reassessment #2 Time Reassessed: 14:13 (hr 133, b/p 203/141, sats 100%) Status: unchanged - EKG 1 Time of EKG reading by physician:: 12:10 EKG Read and Signed by:: Sumeet Dangelo EKG Interpretation (*Must complete 3 of following elements*): Abnormal Rate: 107 Rhythm: sinus tachy w pac w ac - XRAY 1 XRAY: Bilateral XRAY Study: Chest (IMPRESSION: Tip of endotracheal tube located 2-2.5 cm above kasey. Mild cardiomegaly. Somewhat shallow inspiration. No other evidence of acute disease. Electronically signed by [employer] 12/29/2018 1:13 PM) Impression: Normal - CT/MRI 1 CT Study: Head Impression: Normal (IMPRESSION: Chronic microvascular ischemic changes. No visible acute intracranial abnormality. No hemorrhage or mass effect. This exam was performed using automated exposure control, adjustment of mA or kV according to patient size, and/or use of iterative reconstruction technique. Electronically signed by [employer] 12/29/2018 12:36 PM) - CONSULTS/PCP/HOSPITALIST Notification #1 *Consult/PCP/Hospitalist*: Dr. Ratliff, hospitalist Time Discussed: 14:05 Consult Disposition: Admit Procedures - INTUBATION Time of Intubation: 12:15 Mallampati Class: 3 Intubation Method: orotracheal Equipment: ETT Tube Size (cm): 7.5 Pretreated with 100% Oxygen?: Yes Breath Sounds after Intubation: equal ETT Primary Tube Confirmation: Capnometry CO2 Change, Direct Visualization, Chest Rise and Fall, Tube placement verified on XRAY Intubation Complications: no complications Vent Settings: See Respiratory Therapy Notes Departure - Departure Date of Disposition Decision: 12/29/18 Time of Disposition Decision: 14:00 DIAGNOSIS: Respiratory failure Qualifiers: Chronicity: acute Respiratory failure complication: hypoxia Qualified Code(s): J96.01 - Acute respiratory failure with hypoxia Disposition: ADMITTED INPATIENT 09 Certified Medical Emergency: Emergent Condition: Critical Referrals and Follow-Ups: Rosalie Dykes MD [Primary Care Provider] - - Critical Care Note This patient required my direct & personal management of CC.: Yes Total Time (mins): 91 Critical Care Statement: This patient required my direct personal management to treat or rule out processes, the absence of which, could potentiallly result in sudden, clinically significant life or limb threatening deterioration. Attestation - Physician/ REX Attestation Patient care was provided by Advanced Practice Provider:: No The physician spent face to face time with patient:: Yes Advanced Practice Provider documentation review:: Supervising physician onsite and consulted in the evaluation and care of this patient. The physician did have a face to face encounter with the patient. This chart was documented by the indicated scribe, (Luisa Polk Scribe) and accurately reflects the services I performed and decisions made by me, Sumeet Dangelo MD, as attested by the provider's signature.
[2018-12-29] MEDS ORDERED: VERSED 100 MG in NS 80 ML IV SCH ×3 (12:45→18:00)
--- NOTE | 2018-12-29 12:47 | EKG Report ---
Test Performed on : 12/29/2018 12:10:19 PM Test Reason : APNEA Blood Pressure : / mmHG Vent. Rate : 107 BPM Atrial Rate : 107 BPM P-R Int : 132 ms QRS Dur : 068 ms QT Int : 302 ms P-R-T Axes : 067 007 -15 degrees QTc Int : 403 ms Sinus tachycardia. with premature atrial complexes. with aberrant conduction. ST & T wave abnormality, consider inferior ischemia Abnormal ECG When compared with ECG of 01-JUN-2018 12:51, aberrant conduction. is now present Inverted T waves have replaced nonspecific T wave abnormality in Inferior leads Nonspecific T wave abnormality, worse in Anterior leads Unconfirmed Result
[2018-12-29 12:54] LABS: BE -0.9 mmoll (-3.0-3.0); BLOOD TYPE ARTERIAL; HCO3-(ACT) 24.2 mmoll (20.0-26.0); O2(CT) 16.9 mL/dL (15.0-23.0); O2HB 96.4 % (95.0-99.0); PCO2(98.6) 37 mmHg (35-45); PO2(98.6) 460 mmHg (60-100); SAMPLE BLOOD; SAO2 100.1 % (95.0-100.0); SRATE 14 BPM; THB 11.5 g/dL (11.5-17.4); TVOL 500 mL; pH(98.6) 7.41 (7.35-7.45)
[2018-12-29 12:57] LABS: ALLEN TEST YES; MODALITY VENTILATOR
--- NOTE | 2018-12-29 13:15 | Diag Imaging Result Doc PS360 ---
EXAM: CHEST-PORTABLE - 12/29/2018 HISTORY: respiratory failure TECHNIQUE: Portable chest COMPARISON: 06/01/2018 FINDINGS: There are artifacts from external hardware over the chest. The tip of the endotracheal tube appears be located 2-2.5 cm above the kasey. There is mild cardiomegaly. Inspiration appears somewhat shallow, but this may be exaggerated by lordotic projection. There is mild prominence of basilar markings which appears to be chronic. There is no dense consolidation, gross pulmonary edema, pleural effusion, or pneumothorax identified. IMPRESSION: Tip of endotracheal tube located 2-2.5 cm above kasey. Mild cardiomegaly. Somewhat shallow inspiration. No other evidence of acute disease. Electronically signed by Duc Bergeron 12/29/2018 1:13 PM
[2018-12-29] MEDS ORDERED: VERSED ONE (13:21)
[2018-12-29] MEDS ORDERED: DIPRIVAN 1% 2,000 MG/200 ML BOTTLE ONE (13:27)
[2018-12-29] MEDS ORDERED: DIPRIVAN 1% IV ONE (13:29)
[2018-12-29] MEDS ORDERED: DIPRIVAN 1% 1,000 MG/100 ML BOTTLE IV SCH (13:30)
[2018-12-29 13:42] LABS: BILIRUBIN URINE NEGATIVE (NEGATIVE); BLOOD URINE 1+ (NEGATIVE); CLARITY SL. CLOUDY (CLEAR); COLOR YELLOW; GLUCOSE URINE NEGATIVE (NEGATIVE); KETONE URINE NEGATIVE (NEGATIVE); LEUKOCYTES URINE NEGATIVE (NEGATIVE); NITRITE URINE NEGATIVE (NEGATIVE); PROTEIN URINE TRACE mg/dL (NEGATIVE); UROBILINOGEN URINE NORMAL
[2018-12-29 13:43] LABS: URINE BACTERIA 2+ /HFP; URINE EPITHELIAL CELLS <10 /HPF (<10); URINE SOURCE CATH; URINE WBC 20-40 /HPF (<10)
[2018-12-29] MEDS ORDERED: VERSED IV ONE (14:04)
[2018-12-29 14:07] LABS: CHLORIDE 103 mmol/L (98-107); POTASSIUM 3.2 mmol/L (3.5-5.1); SODIUM 142 mmol/L (136-145)
[2018-12-29] MEDS ORDERED: LABETALOL IV ONE (14:08)
[2018-12-29 14:36] LABS: AGAP 19; BUN 14 mg/dL (8-22); CALCIUM 9.4 mg/dL (8.8-10.2); COSMO 289; CREATININE 0.8 mg/dL (0.5-0.9); GLUCOSE 171 mg/dL (70-104); TCO2 21 mmol/L (25-35); TOTAL PROTEIN 7.4 g/dL (6.3-8.3)
[2018-12-29 14:37] LABS: ALBUMIN 3.7 g/dL (3.5-5.0); ALKALINE PHOSPHATASE 79 U/L (32-104); GOT 15 U/L (10-30); GPT 6 U/L (10-36)
[2018-12-29] MEDS ORDERED: APRESOLINE IV PRN (15:49)
[2018-12-29] MEDS ORDERED: HUMALOG (PARKWAY) SUBQ SCH (16:00)
[2018-12-29] MEDS ORDERED: VANCOMYCIN IV PER PHARMACY MISC SCH ×2 (16:54)
[2018-12-29] MEDS ORDERED: SODIUM CHLORIDE 0.9% INJ SCH ×2 (16:54→17:00)
[2018-12-29] MEDS: NS 1,000 ML IV SCH (17:27)
[2018-12-29] MEDS: LOVENOX SUBQ SCH (17:27)
[2018-12-29] MEDS: PROTONIX IV SCH (17:27)
[2018-12-29] MEDS ORDERED: PROTONIX IV SCH (17:30)
[2018-12-29] MEDS: POTASSIUM CHLORIDE 20 MEQ/SWI 20 MEQ/100 ML IVPB IV SCH ×2 (17:46→19:45)
[2018-12-29] MEDS: DUONEB (A & A) INH SCH ×3 (17:52→23:05)
[2018-12-29] MEDS: DIPRIVAN 1% 1,000 MG/100 ML BOTTLE IV SCH ×2 (17:54→21:03)
[2018-12-29] MEDS: SOLU-MEDROL IV SCH (20:57)
[2018-12-29] MEDS: HUMALOG SUBQ SCH (20:59)
[2018-12-29] MEDS: ZOSYN 3.375 GM in NS 50 ML IV SCH (21:02)
[2018-12-29] MEDS ORDERED: LASIX IV ONE (21:11)
--- NOTE | 2018-12-29 23:58 | HISTORY AND PHYSICAL ---
PRIMARY CARE PHYSICIAN: Dr. Dykes. CHIEF COMPLAINT: Is unresponsive. HPI: This is an 88-year-old female who presented to the emergency room via EMS after her family found her unresponsive lying on the floor. The daughters state that she call them about 15 minutes prior to EMS being called stating that she had a bad headache, she felt bad and they needed to come to get her. EMS reports that she had a O2 saturation of 57% on their arrival. The family stated that the patient had been prescribed Bactrim and that she had taken a pill earlier in the day prior to this episode. Of note she has had a suspected anaphylactic reactions to Bactrim in the past. PAST MEDICAL HISTORY: Hypertension, osteoarthritis of both knees, vitamin D deficiency and recurrent UTI. PAST SURGICAL HISTORY: Right knee arthroplasty. SOCIAL HISTORY: She is . She lives in [place]. She has children that are close and active in her care. They deny alcohol, tobacco or illicit drug use. ALLERGIES: Bactrim which causes anaphylaxis and codeine which causes vomiting. HOME MEDICATIONS: A list will be obtained by the nursing staff and will be restarted as is appropriate. REVIEW OF SYSTEMS: Unable to obtain from the patient as she is intubated at present. PHYSICAL EXAM: This is an 88-year-old female who is intubated and sedated at present. Pupils are 5 to 6 mm and nonreactive. At present eyes are fixed. CARDIOVASCULAR: Regular rate and rhythm. S1 and S2 are appreciated. PULMONARY: Breath sounds are diminished throughout. Chest rises and falls symmetric with respiration. GASTROINTESTINAL: Abdomen is soft with hypoactive bowel sounds. GENITOURINARY: Rivera is patent to bedside bag with clear yellow urine draining. SKIN: Warm and dry. LABS: WBC is 10.6 with hemoglobin 13, hematocrit 39.6 and platelets of 326, 000. Sodium 142, potassium 3.2, BUN 14, creatinine 0.8 with a glucose of 171. Urinalysis is positive for 1+ blood, 10 to 20 microscopic red blood cells, 20 to 40 microscopic white blood cells, 2 + bacteria. Urine culture, blood cultures are pending. CT of the head reveals chronic microvascular ischemic changes with no visible acute intracranial abnormality, no hemorrhage or mass effect. Chest x-ray reveals mild cardiomegaly, somewhat shallow inspiration with endotracheal tube located 2 to 2.5 cm above the kasey. EKG revealed sinus tach with PACs. ASSESSMENT AND PLAN: 1. Acute hypoxic respiratory failure . She was intubated in the emergency room , We will consult Dr. Olvera for further management. 2. Possible anaphylaxis secondary to Bactrim. She was not hypotensive, given the suspected reaction in the past, will continue steroids. 3. Possible aspiration. We will give Zosyn 3.375 q.6 hours. 4. Hypertension. Hydralazine 10 mg IV q.6 hours p.r.n., 5. For gastrointestinal prophylaxis we will use Protonix IV. 6. Vancomycin dosed per pharmacy. 7. I have notified Dr. Dykes of the patient's status. He will assume care the patient when she is transferred to [facility]. Dictated by MAKENNA Galan for Kamron Ratliff MD This chart was documented by, MAKENNA Galan and accurately reflects the services performed, treatment plan and medical decisions as attested by the providers signature Kamron Ratliff MD. cc: MAKENNA Galan MD [facility]
[2018-12-30] MEDS: DIPRIVAN 1% 1,000 MG/100 ML BOTTLE IV SCH ×7 (02:00→20:57)
--- NOTE | 2018-12-30 02:30 | HISTORY AND PHYSICAL ---
ADDENDUM: Patient seen and examined by myself. Full note dictated and discussed with nurse practitioner. Patient currently is intubated. She apparently had taken the medication, Bactrim, that she was allergic to. After having a pill this morning, she called the family and stated that she was short of breath and did not feel well. Upon presentation to the ER, she was intubated. Her blood pressure is elevated at 200/120. We will start her on hydralazine currently. She may need a Nipride drip. She was given labetalol in the ER already and her heart rate dropped down in the 50s and 60s. Therefore, we will stop that. We will continue her on mechanical ventilation. We will transfer her to [facility]. We will place her on antibiotics in case this is not an allergic reaction. We will also use steroids. Further orders as needed. cc: Kamron Ratliff MD
[2018-12-30] MEDS: DUONEB (A & A) INH SCH ×6 (03:06→23:01)
[2018-12-30] MEDS: ZOSYN 3.375 GM in NS 50 ML IV SCH ×4 (03:55→20:51)
[2018-12-30] MEDS: SOLU-MEDROL IV SCH ×3 (03:56→20:52)
[2018-12-30] MEDS: NS 1,000 ML IV SCH ×5 (03:57→20:54)
--- NOTE | 2018-12-30 04:11 | HISTORY AND PHYSICAL ---
CHIEF COMPLAINT: Respiratory arrest, low oxygen level, after taking Bactrim this morning. HISTORY OF PRESENT ILLNESS: She is an 88-year-old female who was not seen in my office since 10/17/2018. She has hematuria, and she was treated as an outpatient. In the meantime she went to the emergency room. A CT of the abdomen and pelvis showed some hematoma versus bladder tumor. Subsequently, the patient was referred to Dr. Vazquez, and Dr. Vazquez did some test in the office and I do not have any reports from his office. The family was told there was no tumor. Apparently, she also has recurrent UTI. Dr. Vazquez called Bactrim on 12/13/2018. The patient took the pill today after 2 weeks, and right the medication she developed this unresponsive state, unable to breathe. They called the EMT and she was brought to the [facility]. As per the emergency physician the patient was a little bit unresponsive, low heart rate and not able to breathe, was intubated, dialyzed and transferred to ICU at [facility]. As per the family there was no CPR or defibrillation given. The patient is under sedation, restless and blood pressure was very high. At this time the etiology is not clear. Dr. Olvera was consulted. The patient's condition is guarded, still critical. PAST MEDICAL HISTORY: History of atypical chest pain, last stress test was negative in 2009, hypertension, ganglion on right wrist, bilateral osteoarthritis, vitamin D deficiency, right total the knee replacement. Prior colonoscopy was done. MEDICATIONS: In my office are aspirin, Lotrel, vitamin D, Mobic, tramadol as needed. ALLERGIES: Reported to Bactrim. SOCIAL HISTORY: She is for the last 2 years. Her recently . No smoking. No alcohol. Lives in [place] independently. FAMILY HISTORY: Father of stroke at 72. Mom also at the age of 102 by deconditioning. HEALTH MAINTENANCE: Mammography in July of 2014. Colonoscopy in 2010. Living will is full code. REVIEW OF SYSTEMS: As per report unable to obtain, the patient was intubated. PHYSICAL EXAMINATION: VITAL SIGNS: Her blood pressure was high. Hemodynamics were stable on mechanical ventilation on propofol. No NG tube was seen. ET tube was placed. LUNGS: Bilateral air entry. HEART: Sounds are regular. ABDOMEN: Belly is soft and nontender. EXTREMITIES: Able to move all the extremities and no edema. NEUROLOGIC: Not able to assess. INVESTIGATIONS: CBC: White cell count 10, hematocrit 39, platelets 326,000. ABG: pH is 7.41, pCO2 is 37, PO2 is 460 on assisted control, rate of 14, FiO2 of 100%, tidal volume 500, PEEP of 5. SMA-7: Potassium 3.2, glucose 152. LFTs were normal. Urinalysis 1+ blood. Chest x-ray: ET tube was placed, no acute disease noted. CT head was done, chronic microvascular ischemic changes, no hemorrhage, no mass effect noted. EKG: Normal sinus, tachycardic, nonspecific changes, nothing acute for ischemia. ASSESSMENT AND PLAN: 1. The patient is an 88-year-old female admitted to the hospital with respiratory arrest after taking Bactrim for a urinary tract infection. The etiology is not clear. Currently intubated, stable. Continue mechanical ventilation and wean off as per Dr. Olvera. 2. Rule out myocardial infarction. We will get serial cardiac enzymes and echocardiogram in the morning. 3. Intravenous fluids. 4. Sedation to the propofol. 5. Deep venous thrombosis prophylaxis with Lovenox. 6. Gastrointestinal prophylaxis with intravenous Protonix. 7. The patient is in hypertension. We will use hydralazine as needed. 8. Hypokalemia. Replace the potassium. 9. We will also gather the entire report from urologist for hematuria. She did have Escherichia coli on 12/11/2018. I will discuss with Dr. Vazquez and we will follow up. cc: Calvin Dykes MD [facility]
--- NOTE | 2018-12-30 04:55 | PULMONOLOGY CONSULTATION ---
DATE: 12/29/2018 REASON FOR CONSULTATION: Respiratory failure. HISTORY OF PRESENT ILLNESS: Ms. Wilson is an 88-year-old female with history of hypertension, history of recurrent urinary tract infections, who was admitted to the hospital in May. The patient had a wasp sting and subsequently received Bactrim and presented with shortness of weight breath and wheezing, but no significant hypotension. She received Benadryl, steroids and Pepcid, and was discharged home. She has had difficulty with recurrent urinary tract infections. The patient also has hypertension with probable marginal compliance with blood pressure medications. The patient has received Keflex recently for a urinary tract infection with good results, but the urinary tract infection returned. She received a prescription for sulfamethoxazole by report, but did not immediately get it filled. She did finally get the prescription filled and then after taking a dose this morning she called her daughter indicating that her head was hurting and she was very short of breath, and she was subsequently brought to the emergency room. Initial saturations by EMS report was 57%. She was intubated, she was in acute respiratory distress with accessory muscle use. She was tachycardiac and hypertensive. A CT scan of the brain was performed which revealed chronic ischemic changes, but no acute pathology. Hemodynamically she is doing well but had required some hydralazine. She appears to be comfortable on mechanical ventilation. PAST MEDICAL HISTORY/PROBLEM LIST: 1. Hypertension. 2. History of suspected allergic reaction to sulfa drugs. 3. Osteoarthritis bilaterally status post right knee arthroplasty. 4. Recurrent urinary tract infections as per above. SOCIAL HISTORY: The patient lives in [place]. She has an attentive family. No alcohol use. No tobacco use. FAMILY HISTORY: Positive for strokes. Mother lived to the age of 102. REVIEW OF SYSTEMS: Cannot be obtained. PHYSICAL EXAMINATION: General: Reveals a well-developed, well-nourished female who appears her stated age. Vital Signs: Blood pressure 147/96, heart rate 74, respiratory rate 14, oxygen saturation 100%. FiO2 gradually decreased down to 40%. HEENT: Pupils are equal and reactive. Oropharynx appears clear without overt swelling. Neck: Supple. Chest: Reveals good air entry bilaterally without wheezing or rhonchi. Cardiac: S1 and S2. Abdomen: Soft. Extremities: Warm to the touch. LABORATORIES: White blood count 10.69, hemoglobin 13.0, platelet count 326,000, Arterial blood gas, pH 7.41, pCO2 of 37, PO2 of 460, with a lactate of 2.8. Sodium 142, potassium 3.2, chloride 103, bicarbonate 21, BUN 14, creatinine 0.8, glucose 202. Urinalysis reveals 20-40 white blood cells. IMPRESSION: The patient is an 88-year-old with acute urinary tract infection, acute hypoxemic respiratory failure with acute respiratory distress requiring intubation. The patient has evidence of significant hypertension and likely has a component of hypertensive crisis. It is not clear that this was a true allergic reaction to the sulfa drugs, but temporally was related and historically she has had a possible prior allergic reaction to sulfa. It was not the typical anaphylaxis in that she was not hypotensive and in shock, but likely had severe bronchospasm with possible airway edema. Hemodynamically she appears to be improving and her oxygen requirements are not excessive. RECOMMENDATIONS: 1. Have the patient obtain a medic alert bracelet for sulfa drug allergy. 2. A small dose of Lasix this evening. 3. Continue p.r.n. hydralazine. 4. Continue steroids. 5. Anticipate spontaneous breathing trial with expected extubation tomorrow if she continues to improve. TIME SPENT: Time spent in critical care 1 hour. cc: Collins Olvera MD
[2018-12-30 05:18] LABS: BE -3.7 mmoll (-3.0-3.0); BLOOD TYPE ARTERIAL; METHB 1.8 % (0.0-1.5); MODALITY VENTILATOR; O2(CT) 19.9 mL/dL (15.0-23.0); O2HB 96.2 % (95.0-99.0); PCO2(98.6) 35 mmHg (35-45); PO2(98.6) 164 mmHg (60-100); SAMPLE BLOOD; SAO2 99.4 % (95.0-100.0); SRATE 12 BPM; THB 14.5 g/dL (11.5-17.4); TVOL 500 mL; pH(98.6) 7.38 (7.35-7.45)
[2018-12-30 05:19] LABS: ALLEN TEST YES
[2018-12-30 06:04] LABS: BASO# 0.02 X1000 (0.0-0.2); BASO% 0.1 % (0.0-0.8); EOS# 0.02 X1000 (0.0-0.7); EOS% 0.1 % (0.0-10.0); HEMATOCRIT 40.4 % (37.0-47.0); HEMOGLOBIN 13.1 g/dL (12.0-16.0); IMM GRAN# 0.13 X1000 (0.0-0.04); IMM GRAN% 0.4 % (0.0-0.5); LYMPH# 1.16 X1000 (1.2-3.4); LYMPH% 3.6 % (20.5-51.1); MCH 27.8 PG (27-31); MCHC 32.4 g/dL (33-37); MCV 85.8 FL (81-99); MONO# 0.45 X1000 (0.11-0.59); MONO% 1.4 % (1.7-9.3); MPV 10.9 FL (7.4-10.4); NEUT% 94.4 % (42.2-75.2); PLT 284 X1000 (130-400); RBC 4.71 XMIL (4.2-5.4); WBC 31.98 X1000 (4.8-10.8)
[2018-12-30] MEDS: HUMALOG SUBQ SCH ×4 (06:14→20:53)
[2018-12-30 06:22] LABS: AGAP 18; ALB/GLOB RATIO 1.3; ALKALINE PHOSPHATASE 76 U/L (32-104); BUN 16 mg/dL (8-22); CALCIUM 8.7 mg/dL (8.8-10.2); CHLORIDE 104 mmol/L (98-107); CK PROFILE 23 U/L (24-173); COSMO 286; CREATININE 0.8 mg/dL (0.5-0.9); ESTIMATED GFR > 60; GLUCOSE 164 mg/dL (70-104); GOT 14 U/L (10-30); GPT 9 U/L (10-36); POTASSIUM 4.6 mmol/L (3.5-5.1); SODIUM 141 mmol/L (136-145); TCO2 19 mmol/L (25-35); TOTAL BILIRUBIN 0.25 mg/dL (0.20-1.00); TOTAL PROTEIN 7.2 g/dL (6.3-8.3)
[2018-12-30 06:29] LABS: LYMPHS 4 % (21-51); MONO 1 % (1-9); SEGS 95 % (42-75)
[2018-12-30] MEDS: APRESOLINE IV PRN (07:35)
[2018-12-30] MEDS: VANCOMYCIN 1.4 GM in NS 250 ML IV SCH (07:38)
[2018-12-30] MEDS ORDERED: INSULIN PEN NEEDLES ONE (08:09)
--- NOTE | 2018-12-30 08:35 | Diag Imaging Result Doc PS360 ---
CHEST-1 VIEW - 12/30/2018 INDICATION: SOB COMPARISON: 12/29/2018 FINDINGS: Stable endotracheal tube at T5. No infiltrates throughout the lungs. Heart size and pulmonary vascularity is top normal. IMPRESSION: No acute disease or complication. Electronically signed by Josué Ballard 12/30/2018 8:32 AM
[2018-12-30] MEDS: VASOTEC IV SCH ×2 (09:16→15:49)
--- NOTE | 2018-12-30 12:24 | PROGRESS NOTE ---
DATE: 12/30/2018 VITAL SIGNS: Temperature 98.9 degrees, heart rate 94, respirations 20, blood pressure 175/89, O2 saturation on mechanical ventilation 40% FiO2 100%. LABORATORY: Hemoglobin 13.1, hematocrit 40.4, white blood count 13,900 with 94% neutrophils. Sodium 141, potassium 4.6, BUN 16, creatinine 0.8, glucose 164, calcium 8.7. CPK 23, troponin less than 0.01. ProBNP 650. Blood gases: A pH 7.38, pCO2 35, PO2 164 on 40% FiO2 with PEEP 5.0. X-RAYS: Chest x-ray: No acute disease or infiltrate. SUBJECTIVE: The patient became more alert after Diprivan wore off. She will have a trial off the vent. She is presently on BiPAP mode. She is being followed by Dr. Olvera. Plan is to hopefully extubate today. She is an 88-year-old black female, who had a probable allergic reaction and respiratory arrest following administration of Bactrim for urinary tract infection. Blood culture results are pending. She is on Solu-Medrol q. 8 hours. Leukocytosis may be related to this. She is receiving vancomycin and Zosyn. cc: MD Calvin Shahid MD
[2018-12-30] MEDS ORDERED: TYLENOL PR PRN (15:23)
[2018-12-30] MEDS: LOVENOX SUBQ SCH (15:59)
[2018-12-30] MEDS: PROTONIX IV SCH (15:59)
--- NOTE | 2018-12-30 23:42 | PULMONOLOGY PROGRESS NOTE ---
DATE: 12/30/2018 INTERIM HISTORY: The patient has had an uneventful night by nursing report. She has had significant elevation in blood pressures requiring hydralazine. The patient was previously on lisinopril for hypertension. Blood pressure 163/85, heart rate 99, respiratory rate 21, oxygen saturation 100% on 40% FiO2.HEENT: Pupils were equal. Oropharynx has copious amount of secretions. Neck: Is supple. Chest: Reveals good air entry bilaterally with minimal wheeze. Cardiac: S1-S2. Abdomen: Is soft. Extremities: Are without edema. LABORATORIES: Endotracheal tube in good position. No significant infiltrates. Arterial blood gas, pH 7.38, pCO2 of 35, PO2 of 164. Sodium 141, potassium 4.6, chloride 104, bicarbonate 19, anion gap 18, BUN 16, creatinine 0.8. ProBNP 650, glucose 189. IMPRESSION: An 88-year-old with history of sulfa drug allergy who developed acute respiratory distress with acute hypoxemic respiratory failure following Bactrim. The patient also had significant hypertension. She continues to have copious secretions. The patient was placed on a spontaneous breathing trial and had adequate ventilation. However, she failed a leak test with a deflation of the endotracheal tube cuff. Because she failed the leak test, we will continue mechanical ventilation at least another 24 hours. RECOMMENDATION: 1. Reinitiate mechanical ventilation and sedation. 2. We will initiate Vasotec IV for hypertension. 3. Continue steroids and hydralazine p.r.n. 4. Reevaluate extubation Tuesday morning. TIME SPENT: In critical care 30+ minutes. cc: MD Calvin Abbott MD
[2018-12-31] MEDS: VASOTEC IV SCH ×3 (01:06→15:53)
[2018-12-31] MEDS: DIPRIVAN 1% 1,000 MG/100 ML BOTTLE IV SCH ×3 (01:07→07:21)
[2018-12-31] MEDS: ZOSYN 3.375 GM in NS 50 ML IV SCH ×4 (03:01→20:50)
[2018-12-31] MEDS: DUONEB (A & A) INH SCH ×6 (03:42→23:45)
[2018-12-31] MEDS: SOLU-MEDROL IV SCH ×3 (03:49→20:50)
[2018-12-31] MEDS: APRESOLINE IV PRN (03:49)
[2018-12-31 04:36] LABS: ALLEN TEST YES; BE -3.3 mmoll (-3.0-3.0); BLOOD TYPE ARTERIAL; HCO3-(ACT) 22.3 mmoll (20.0-26.0); METHB 2.1 % (0.0-1.5); O2(CT) 16.6 mL/dL (15.0-23.0); O2HB 95.9 % (95.0-99.0); PCO2(98.6) 36 mmHg (35-45); PO2(98.6) 178 mmHg (60-100); SAMPLE BLOOD; SAO2 99.5 % (95.0-100.0); SRATE 8 BPM; TVOL 500 mL; pH(98.6) 7.38 (7.35-7.45)
[2018-12-31 04:46] LABS: MODALITY VENTILATOR
[2018-12-31 06:16] LABS: BASO# 0.02 X1000 (0.0-0.2); BASO% 0.1 % (0.0-0.8); EOS# 0.01 X1000 (0.0-0.7); HEMATOCRIT 36.5 % (37.0-47.0); HEMOGLOBIN 11.7 g/dL (12.0-16.0); IMM GRAN# 0.13 X1000 (0.0-0.04); IMM GRAN% 0.4 % (0.0-0.5); LYMPH# 0.68 X1000 (1.2-3.4); MCHC 32.1 g/dL (33-37); MCV 87.3 FL (81-99); MONO# 0.72 X1000 (0.11-0.59); MONO% 2.1 % (1.7-9.3); MPV 10.9 FL (7.4-10.4); NEUT# 32.18 X1000 (1.4-6.5); NEUT% 95.4 % (42.2-75.2); PLT 241 X1000 (130-400); RBC 4.18 XMIL (4.2-5.4); RDW 13.4 % (11.5-14.5); WBC 33.74 X1000 (4.8-10.8)
[2018-12-31] MEDS: HUMALOG SUBQ SCH ×4 (06:25→20:51)
[2018-12-31 06:37] LABS: AGAP 18; ALB/GLOB RATIO 1.1; ALBUMIN 3.4 g/dL (3.5-5.0); ALKALINE PHOSPHATASE 61 U/L (32-104); BUN 19 mg/dL (8-22); CALCIUM 8.1 mg/dL (8.8-10.2); CHLORIDE 108 mmol/L (98-107); COSMO 292; CREATININE 0.8 mg/dL (0.5-0.9); ESTIMATED GFR > 60; GLUCOSE 148 mg/dL (70-104); GOT 11 U/L (10-30); GPT 8 U/L (10-36); POTASSIUM 4.2 mmol/L (3.5-5.1); SODIUM 144 mmol/L (136-145); TCO2 18 mmol/L (25-35); TOTAL BILIRUBIN 0.23 mg/dL (0.20-1.00); TOTAL PROTEIN 6.6 g/dL (6.3-8.3)
[2018-12-31] MEDS: NS 1,000 ML IV SCH ×3 (07:06→18:06)
--- NOTE | 2018-12-31 08:19 | Diag Imaging Result Doc PS360 ---
CHEST-1 VIEW - 12/31/2018 INDICATION: SOB COMPARISON: 12/30/2018 FINDINGS: Stable endotracheal tube in good position at T4-T5. The lungs are clear of infiltrate. Heart size is normal. IMPRESSION: No complication or change from prior. Electronically signed by Josué Ballard 12/31/2018 8:17 AM
--- NOTE | 2018-12-31 10:28 | PROGRESS NOTE ---
DATE: 12/31/2018 The patient continues to be on the ventilator with spontaneous rate 8, FiO2 40, and on Diprivan. Temperature is 98 degrees, heart rate 100 with occasional tachycardia up to 140 and PACs, but only briefly. Blood pressure 117/69. The patient is unresponsive due to the Diprivan. Chest is clear. Abdomen is soft. Blood gases with pH 7.38, pCO2 36, PO2 178. Sodium 144, potassium 4.2, BUN 19, creatinine 0.8, glucose 148, calcium 8.1. Liver functions normal. PLAN: Try weaning from the ventilator again today. She is being seen by Dr. Olvera. cc: MD Calvin Shahid MD
--- NOTE | 2018-12-31 14:42 | PULMONOLOGY PROGRESS NOTE ---
DATE: 12/31/2018 SUBJECTIVE: The patient was placed on a spontaneous breathing trial earlier. She has been followed for approximately 1 hour. She had a positive leak test with deflating her cuff earlier this morning. Her minute ventilation remains unchanged and her tidal volumes range from 275 to 560ml. OBJECTIVE: HEENT: Pupils are equal and reactive. Oropharynx appears clear. Neck: Is supple. Chest: Reveals occasional rhonchi bilaterally. Cardiac: S1-S2. Abdomen: Soft and without hepatosplenomegaly. Extremities: Without edema. LABORATORIES: White blood count 33.7 thousand, hemoglobin 11.7, platelet count 241,000. Microbiology reveals a positive blood culture for gram-positive cocci. Urine culture is positive for an ESBL negative E. coli. Chest x-ray reveals no evidence of acute disease. Endotracheal tube is in good position. Arterial blood gas reveals a pH 7.38, pCO2 of 36, PO2 of 178 on 40% FiO2. IMPRESSION: An 88-year-old with history of sulfa drug allergy who developed acute respiratory distress and acute hypoxemic respiratory failure with bronchospasm following Bactrim. The patient remained hypertensive and required medications to bring her systolic blood pressure down. She failed leak test yesterday but passed a leak test today. Secretions have decreased. She has an Escherichia coli in her urine which is not unexpected but the gram-positive cocci in the blood is unexpected and the etiology is not clear. This may be a contaminant. She currently is receiving medicines which should cover gram-positive bacteremia. RECOMMENDATIONS: 1. Extubation this morning given successful leak test and successful passage of a spontaneous breathing trial. 2. Continue treatment of hypertension. 3. Continue current Zosyn for E coli. 4. Continue vancomycin pending results of Gram positive identification. TIME SPENT CRITICAL CARE: 30+ minutes. cc: MD Calvin Abbott MD MTDD
[2018-12-31] MEDS: PROTONIX IV SCH (15:59)
[2018-12-31] MEDS: LOVENOX SUBQ SCH (15:59)
[2018-12-31] MEDS: VANCOMYCIN 1.4 GM in NS 250 ML IV SCH (20:51)
[2019-01-01] MEDS: VASOTEC IV SCH ×2 (00:11→07:50)
[2019-01-01] MEDS: DUONEB (A & A) INH SCH ×6 (03:27→23:21)
[2019-01-01] MEDS: ZOSYN 3.375 GM in NS 50 ML IV SCH ×5 (03:44→21:28)
[2019-01-01] MEDS: NS 1,000 ML IV SCH ×2 (03:45→07:50)
[2019-01-01] MEDS: SOLU-MEDROL IV SCH ×2 (03:45→15:22)
--- NOTE | 2019-01-01 06:12 | Diag Imaging Result Doc PS360 ---
EXAM: CHEST-1 VIEW HISTORY: SOB TECHNIQUE: Portable chest single view COMPARISON: 12/31/2018 FINDINGS: The endotracheal tube has been removed. The lungs are less well expanded. The heart is enlarged and there is mild vascular distention. Atelectasis versus infiltrate in the lower right lung with small right pleural effusion. IMPRESSION: Mild interval worsening. Electronically signed by Lalo Banks 01/01/2019 6:10 AM
[2019-01-01] MEDS: HUMALOG SUBQ SCH ×2 (06:20→10:25)
[2019-01-01 06:36] LABS: BASO# 0.01 X1000 (0.0-0.2); EOS# 0.01 X1000 (0.0-0.7); HEMATOCRIT 34.8 % (37.0-47.0); HEMOGLOBIN 11.1 g/dL (12.0-16.0); IMM GRAN% 0.4 % (0.0-0.5); LYMPH# 0.79 X1000 (1.2-3.4); LYMPH% 2.8 % (20.5-51.1); MCHC 31.9 g/dL (33-37); MCV 87.7 FL (81-99); MONO# 0.73 X1000 (0.11-0.59); MONO% 2.6 % (1.7-9.3); MPV 11.3 FL (7.4-10.4); NEUT# 26.24 X1000 (1.4-6.5); NEUT% 94.2 % (42.2-75.2); PLT 221 X1000 (130-400); RBC 3.97 XMIL (4.2-5.4); RDW 13.5 % (11.5-14.5); WBC 27.88 X1000 (4.8-10.8)
[2019-01-01 06:49] LABS: AGAP 12; ALB/GLOB RATIO 1.1; ALBUMIN 3.5 g/dL (3.5-5.0); ALKALINE PHOSPHATASE 65 U/L (32-104); BUN 18 mg/dL (8-22); CALCIUM 8.6 mg/dL (8.8-10.2); CHLORIDE 114 mmol/L (98-107); COSMO 295; CREATININE 0.7 mg/dL (0.5-0.9); ESTIMATED GFR > 60; GLUCOSE 109 mg/dL (70-104); GOT 37 U/L (10-30); GPT 31 U/L (10-36); POTASSIUM 3.6 mmol/L (3.5-5.1); SODIUM 147 mmol/L (136-145); TCO2 21 mmol/L (25-35); TOTAL BILIRUBIN 0.54 mg/dL (0.20-1.00); TOTAL PROTEIN 6.6 g/dL (6.3-8.3)
[2019-01-01 07:59] LABS: LYMPHS 4 % (21-51); MONO 2 % (1-9); SEGS 94 % (42-75)
--- NOTE | 2019-01-01 08:11 | EKG Report ---
Test Performed on : 12/30/2018 06:36:48 AM Test Reason : cp Blood Pressure : / mmHG Vent. Rate : 083 BPM Atrial Rate : 083 BPM P-R Int : 156 ms QRS Dur : 068 ms QT Int : 394 ms P-R-T Axes : 065 -01 037 degrees QTc Int : 462 ms Normal sinus rhythm. Normal ECG When compared with ECG of 29-DEC-2018 12:10, (Unconfirmed) aberrant conduction. is no longer present ST no longer depressed in Inferior leads ST no longer depressed in Anterior leads T wave inversion no longer evident in Inferior leads Nonspecific T wave abnormality no longer evident in Anterolateral leads QT has lengthened Confirmed by Kvng CASTAÑEDA, Shadi Fermin ([id number]) on 01/01/2019 8:52:55 AM
[2019-01-01] MEDS ORDERED: NS 1,000 ML IV SCH (08:30)
[2019-01-01] MEDS ORDERED: LOTREL 5/20 MG PO ONE (09:50)
--- NOTE | 2019-01-01 10:30 | PULMONOLOGY PROGRESS NOTE ---
DATE: 01/01/2019 SUBJECTIVE: Patient is awake, alert, and conversant. She is without specific complaints. Her voice is strong. She has been evaluated by Dr. Dykes, and she is being prepared for transfer to the floor. OBJECTIVE: Vital signs: Maximum temperature in the last 24 hours 100.0 degrees. Current temperature 99.3 degrees, blood pressure 185/103, heart rate 94, respiratory rate 18, oxygen saturation 96% on room air. HEENT: Pupils are equal and reactive. There is mild lid lag on the right. Family reports they think that may be new, after looking at old photos. Neck: Supple without masses or tenderness. Chest: Reveals crackles at the base. Cardiac: S1, S2. Abdomen: Soft and without hepatosplenomegaly. Extremities: Without edema. LABORATORIES: Chest x-ray reveals atelectasis versus small infiltrate at the right base. Microbiology reveals Strep midis in the bloodstream. White blood count 27.88, hemoglobin 11.1. Urinalysis reveals ESBL negative, pansensitive E coli in the urine. IMPRESSION: An 88-year-old with sulfa allergy, who developed acute respiratory distress and acute hypoxemic respiratory failure following Bactrim. The patient's pulmonary status continues to improve. She has mild residual changes at the right lung base. She does have significant hypertension. She has slight lid lag on the right, which may or may not be new. She has gram- positive cocci in the blood of unknown significance. RECOMMENDATION: 1. Agree with transfer to the floor. 2. Additional blood pressure management per Dr. Dykes. 3. Will order repeat blood cultures. 4. Followup chest x-ray in 2 to 3 days. cc: MD Calvin Abbott MD
[2019-01-01] MEDS: LOVENOX SUBQ SCH (17:22)
[2019-01-01] MEDS: PROTONIX IV SCH (17:22)
--- NOTE | 2019-01-02 00:26 | PROGRESS NOTE ---
DATE: 01/01/2019 SUBJECT: Events noted over the weekend, appreciate Dr. Olvera's consult. The patient was extubated. She is awake and passed the swallowing studies. Blood cultures 1/2 positives, urine cultures positive for UTI. Family was at bedside. Blood pressure is running high. REVIEW OF SYSTEMS: None reported. EXAMINATION: Temperature 98.8 degrees, pulse is 86, blood pressure is 160/81, 2 L nasal cannula.HEENT: Within normal limits. Chest: Bilateral air entry. Heart: Sounds are regular. Belly: Is soft, nontender, good bowel sounds. No peripheral edema, cyanosis. No obvious neurological deficits. INVESTIGATIONS: White cell count 27.8, hematocrit 34, platelet count 221,000. SMA 7 sodium 147, potassium 3.6, BUN 18, creatinine 0.7. Urine cultures E coli sensitive to Zosyn. Blood cultures 1/2 positive for strep mitis sensitive to penicillin as well as vancomycin. ASSESSMENT AND PLAN: 1. Anaphylactic shock due to Bactrim. Discontinue Bactrim with medical alert. 2. Discontinue Rivera. 3. Hypertension. Start on Lotrel. 4. Deep venous thrombosis prophylaxis with Lovenox. 5. Gastrointestinal prophylaxis with IV Protonix. 6. UTI due to E coli. ESBL negative. Repeat blood cultures also pending continue on IV Zosyn q.6 elevated white count probably from steroids also decrease the prednisone 40 q.12. 7. If she passed the swallowing studies. Advance the diet. We will transfer her out of the ICU. I appreciate Dr. Olvera's consult over the weekend. LEVEL OF DOCUMENTATION: . cc: Calvin Dykes MD
[2019-01-02] MEDS: DUONEB (A & A) INH SCH ×6 (03:11→23:50)
[2019-01-02] MEDS: ZOSYN 3.375 GM in NS 50 ML IV SCH ×4 (04:31→22:29)
[2019-01-02] MEDS: SOLU-MEDROL IV SCH (04:31)
[2019-01-02 07:37] LABS: BASO# 0.01 X1000 (0.0-0.2); BASO% 0.1 % (0.0-0.8); HEMATOCRIT 37.6 % (37.0-47.0); HEMOGLOBIN 12.1 g/dL (12.0-16.0); IMM GRAN# 0.07 X1000 (0.0-0.04); IMM GRAN% 0.4 % (0.0-0.5); LYMPH# 0.99 X1000 (1.2-3.4); LYMPH% 5.2 % (20.5-51.1); MCH 27.9 PG (27-31); MCHC 32.2 g/dL (33-37); MCV 86.6 FL (81-99); MONO# 0.63 X1000 (0.11-0.59); MONO% 3.3 % (1.7-9.3); PLT 223 X1000 (130-400); RBC 4.34 XMIL (4.2-5.4); RDW 13.3 % (11.5-14.5)
[2019-01-02] MEDS: LOTREL 5/20 MG PO SCH (08:06)
[2019-01-02 08:26] LABS: AGAP 13; BUN 23 mg/dL (8-22); CALCIUM 8.8 mg/dL (8.8-10.2); CHLORIDE 107 mmol/L (98-107); COSMO 291; CREATININE 0.8 mg/dL (0.5-0.9); ESTIMATED GFR > 60; GLUCOSE 115 mg/dL (70-104); POTASSIUM 3.9 mmol/L (3.5-5.1); SODIUM 144 mmol/L (136-145); TCO2 24 mmol/L (25-35)
[2019-01-02] MEDS ORDERED: VITAMIN D PO SCH (09:00)
[2019-01-02 10:54] LABS: LYMPHS 4 % (21-51); SEGS 96 % (42-75)
[2019-01-02] MEDS: PROTONIX IV SCH (16:55)
[2019-01-02] MEDS: LOVENOX SUBQ SCH (16:55)
[2019-01-02] MEDS ORDERED: TYLENOL PO PRN (19:59)
--- NOTE | 2019-01-02 21:47 | PROGRESS NOTE ---
DATE: 01/02/2019 SUBJECT: The patient is getting better and no chest pain, shortness of breath. EXAM: Low-grade fever and vitals are stable.HEENT: Within normal limits. Neck : Supple. Chest: Clear. Heart: Sounds are regular. Belly: Is soft, nontender. Good bowel sounds. No neurological deficits. INVESTIGATIONS: CBC. White cell count 19, hematocrit 37, platelets 223,000. SMA 7. Sodium 144, potassium 3.9, chloride 107, BUN 23, creatinine 0.8, glucose 109. Urine cultures positive for E coli. ASSESSMENT AND PLAN: 1. Anaphylactic shock with Bactrim improving. 2. Elevated white cell count getting better. 3. Decreased intravenous steroids 40 mg q.24 . 4. Deep vein thrombosis, gastrointestinal prophylaxis as per order sheet. 5. Escherichia coli, continue on IV Zosyn. 6. Hypertension on Lotrel and out of the bed with physical therapy and will repeat the labs in the morning. LEVEL OF DOCUMENTATION: 25 minutes. cc: Calvin Dykes MD MTDD
--- NOTE | 2019-01-02 22:35 | PULMONOLOGY PROGRESS NOTE ---
DATE: 01/02/2019 SUBJECTIVE: The patient is awake, alert, and conversant. She reports she is having a good day. OBJECTIVE: Vital signs: The patient has been afebrile over the last 24 hours. Blood pressure 164/98, heart rate 90, respiratory rate 16, oxygen saturation 96% on 2 L per nasal cannula. HEENT: Pupils are equal and reactive. Oropharynx is clear. Neck: Supple. Chest: Reveals good air entry bilaterally with faint crackles at the lung bases. Cardiac exam: S1, S2. Abdomen: Soft and without hepatosplenomegaly. Extremities: Without edema. LABORATORIES: White blood count 19.2, hemoglobin 12.1, platelet count 223,000. Sodium 144, potassium 3.9, chloride 107, bicarb 24, BUN 23, creatinine 0.8. MICROBIOLOGY: No new culture data available. IMPRESSION: An 88-year-old with: 1. Acute hypoxemic respiratory failure. 2. Hypertension. 3. Leukocytosis. 4. Urinary tract infection, with gram-positive cocci in bloodstream of unknown significance. RECOMMENDATIONS: 1. Agree with additional blood pressure management as outlined per Dr. Dykes. 2. Agree with steroid weaning. 3. Two-view chest x-ray tomorrow. 4. Wean oxygen as tolerated. cc: MD Calvin Abbott MD
[2019-01-03] MEDS: DUONEB (A & A) INH SCH ×6 (04:18→23:41)
[2019-01-03] MEDS: SOLU-MEDROL IV SCH (05:40)
[2019-01-03] MEDS: ZOSYN 3.375 GM in NS 50 ML IV SCH ×4 (05:40→23:38)
[2019-01-03 07:36] LABS: BASO# 0.01 X1000 (0.0-0.2); BASO% 0.1 % (0.0-0.8); EOS# 0.14 X1000 (0.0-0.7); HEMATOCRIT 39.8 % (37.0-47.0); HEMOGLOBIN 12.8 g/dL (12.0-16.0); IMM GRAN# 0.05 X1000 (0.0-0.04); IMM GRAN% 0.4 % (0.0-0.5); LYMPH# 3.29 X1000 (1.2-3.4); LYMPH% 24.4 % (20.5-51.1); MCH 27.9 PG (27-31); MCHC 32.2 g/dL (33-37); MCV 86.7 FL (81-99); MONO# 1.43 X1000 (0.11-0.59); MONO% 10.6 % (1.7-9.3); MPV 11.1 FL (7.4-10.4); NEUT# 8.57 X1000 (1.4-6.5); NEUT% 63.5 % (42.2-75.2); PLT 232 X1000 (130-400); RBC 4.59 XMIL (4.2-5.4); RDW 13.1 % (11.5-14.5); WBC 13.49 X1000 (4.8-10.8)
--- NOTE | 2019-01-03 08:08 | Diag Imaging Result Doc PS360 ---
EXAM: CHEST-2 VIEWS 01/03/2019 HISTORY: abnormal exam TECHNIQUE: PA and lateral chest COMMENT: There is a calcification at the azygos node. The right hemidiaphragm is slightly elevated as it was on 01/01/2019. Otherwise there has been no significant change. IMPRESSION: Stable chest. Electronically signed by Claude Johnson 01/03/2019 8:05 AM
[2019-01-03] MEDS: LOTREL 5/20 MG PO SCH (08:24)
[2019-01-03 08:52] LABS: AGAP 14; BUN 18 mg/dL (8-22); CHLORIDE 102 mmol/L (98-107); COSMO 287; CREATININE 0.7 mg/dL (0.5-0.9); ESTIMATED GFR > 60; GLUCOSE 106 mg/dL (70-104); POTASSIUM 3.2 mmol/L (3.5-5.1); SODIUM 143 mmol/L (136-145); TCO2 27 mmol/L (25-35)
--- NOTE | 2019-01-03 13:38 | PULMONOLOGY PROGRESS NOTE ---
DATE: 01/03/2019 SUBJECTIVE: The patient is awake, alert, and conversant. She has no complaints. She has been clearing some thick secretions. OBJECTIVE: Vital signs: Maximum temperature over the last 24 hours, 100.1 degrees. HEENT: Pupils are equal and reactive. Mild lid lag on the left. Oropharynx appears clear. Neck: Supple. Chest: Reveals mild decreased breath sounds right base. No wheezing or rhonchi. Cardiac: S1, S2. Abdomen: Soft and without hepatosplenomegaly. Extremities: Are without edema. LABORATORIES: White blood count continues to decrease at 13.49, hemoglobin 12.8, platelet count 232,000. Sodium 143, potassium 3.2, chloride 102, bicarbonate 27, BUN 18, creatinine 0.7, glucose 106. Chest x-ray reveals mild elevation of the right hemidiaphragm. No acute infiltrates. Microbiology: No new data. IMPRESSION: An 88-year-old with acute respiratory distress and acute hypoxemic respiratory failure with a history of sulfa allergy. The event occurred after she took a sulfa dose. The patient continues to improve. Chest x-ray is clear, but she does have mild elevation of the right hemidiaphragm, which was not present on x-ray prior to this admission. She does have 1 blood culture, which reveals an oral streptococcus, but no positive cultures on followup cultures obtained, 01/01/2019. RECOMMENDATIONS: 1. Consider followup chest x-ray in [address] Dykes's discretion. 2. Consider outpatient echocardiogram and perhaps followup blood cultures after she has completed her antibiotics for her urinary tract infection to ensure she does not have a ongoing bacteremia/endocarditis. 3. No new pulmonary recommendations. We will sign off, but will be available for questions. cc: MD Calvin Abbott MD
[2019-01-03] MEDS: PROTONIX IV SCH (18:41)
[2019-01-03] MEDS: LOVENOX SUBQ SCH (18:41)
[2019-01-03] MEDS ORDERED: KLOR-CON PO ONE (22:24)
--- NOTE | 2019-01-04 01:22 | PROGRESS NOTE ---
DATE: 01/03/2019 SUBJECTIVE: The patient is looking better. No complaints. OBJECTIVE: Vital Signs: Temperature is 99.1 degrees, pulse is 106. Vitals are stable. Telemetry monitoring report erratic questionable ventricular tachycardia but is not clear. HEENT: Within normal limits. Neck: Supple. Chest: Clear. Heart: Sounds are regular. Abdomen: Belly is soft, nontender. Neurologic: No neurological deficits. INVESTIGATIONS: CBC: White cell count 13.4, hematocrit 39, platelets 232,000. SMA-7: Potassium 3.2, sodium 143, BUN 18, creatinine 0.7, glucose 106. Repeat blood cultures on 01/01/2019 was negative, initially Streptococcus oralis E. coli. ASSESSMENT AND PLAN: 1. Elevated white cell count is coming down. Continue on intravenous Zosyn. 2. Deep venous thrombosis and gastrointestinal prophylaxis. As per order sheet. 3. Hypertension on Lotrel. We will review the reports from the telemetry. 4. Anaphylactic shock with Bactrim. Improving on intravenous steroids. 5. Hypokalemia. Replace the potassium by mouth and out of the bed with physical therapy. LEVEL OF DOCUMENTATION: 25 minutes. cc: Calvin Dykes MD
[2019-01-04] MEDS: DUONEB (A & A) INH SCH ×6 (03:55→23:45)
[2019-01-04] MEDS: SOLU-MEDROL IV SCH (05:28)
[2019-01-04] MEDS: ZOSYN 3.375 GM in NS 50 ML IV SCH ×3 (05:28→18:44)
[2019-01-04] MEDS ORDERED: MAGNESIUM SULFATE 2 GM/S.W.I. 2 GM/50 ML IVPB IV ONE (08:07)
[2019-01-04] MEDS: LOTREL 5/20 MG PO SCH (12:19)
[2019-01-04] MEDS: PROTONIX IV SCH (18:43)
[2019-01-04] MEDS: LOVENOX SUBQ SCH (18:43)
[2019-01-05] MEDS: ZOSYN 3.375 GM in NS 50 ML IV SCH ×2 (00:25→06:08)
--- NOTE | 2019-01-05 03:53 | PROGRESS NOTE ---
DATE: 01/04/2019 SUBJECTIVE: The patient is slowly getting better. I did review the equipment monitor phototypesetting. She has 2 episodes of nonsustained ventricular tachycardia, asymptomatic. EXAM: Vital Signs: Temperature is 98 degrees, pulse is 101. Vitals are stable. HEENT: Within normal limits. Neck: Supple. Chest: Clear. Heart: Sounds are regular. Abdomen: Belly is soft, nontender. Good bowel sounds. No obvious neurological deficits. INVESTIGATIONS: Potassium 3.2, magnesium 2.2. ASSESSMENT AND PLAN: 1. Nonsustained ventricular tachycardia, asymptomatic. Give 1 dose of mag sulfate. 2. Anaphylactic reaction to Bactrim and sulfamethoxazole. Discussed with the family. 3. Urinary tract infection, on IV Zosyn. 4. Hypertension is stable. We will check the CBC and BMP in the morning. If she is stable, will discharge in the morning with oral antibiotics and follow up outpatient. LEVEL OF DOCUMENTATION: 25 minutes. cc: Calvin Dykes MD
[2019-01-05] MEDS: DUONEB (A & A) INH SCH ×2 (06:02→09:02)
[2019-01-05] MEDS: SOLU-MEDROL IV SCH (06:08)
[2019-01-05 07:11] LABS: BASO# 0.01 X1000 (0.0-0.2); BASO% 0.1 % (0.0-0.8); EOS# 0.23 X1000 (0.0-0.7); EOS% 1.3 % (0.0-10.0); HEMATOCRIT 37.5 % (37.0-47.0); HEMOGLOBIN 11.8 g/dL (12.0-16.0); IMM GRAN# 0.07 X1000 (0.0-0.04); IMM GRAN% 0.4 % (0.0-0.5); LYMPH# 4.01 X1000 (1.2-3.4); LYMPH% 23.4 % (20.5-51.1); MCH 27.4 PG (27-31); MCHC 31.5 g/dL (33-37); MCV 87.2 FL (81-99); MONO% 9.3 % (1.7-9.3); MPV 10.8 FL (7.4-10.4); NEUT# 11.21 X1000 (1.4-6.5); NEUT% 65.5 % (42.2-75.2); PLT 247 X1000 (130-400); RDW 12.8 % (11.5-14.5); WBC 17.13 X1000 (4.8-10.8)
[2019-01-05 07:38] LABS: AGAP 12; BUN 19 mg/dL (8-22); CALCIUM 8.8 mg/dL (8.8-10.2); CHLORIDE 105 mmol/L (98-107); COSMO 288; CREATININE 0.6 mg/dL (0.5-0.9); ESTIMATED GFR > 60; GLUCOSE 116 mg/dL (70-104); POTASSIUM 3.5 mmol/L (3.5-5.1); SODIUM 143 mmol/L (136-145); TCO2 26 mmol/L (25-35)
[2019-01-05 08:22] VITALS: BP 168/93
[2019-01-05] MEDS: LOTREL 5/20 MG PO SCH ×2 (09:17→10:07)
--- NOTE | 2019-01-06 23:14 | DISCHARGE SUMMARY ---
ADMISSION DATE: 12/29/2018 DISCHARGE DATE: 01/05/2019 DISCHARGING DIAGNOSIS: Acute anaphylactic shock due to Bactrim. SECONDARY DIAGNOSES: 1. Nonsustained ventricular tachycardia, asymptomatic. 2. Recurrent urinary tract infection. 3. Vitamin D deficiency. 4. Hypertension. 5. Status post right knee replacement. 6. Hematuria, recurrent urinary tract infection. Workup was negative as per family from Dr. Vazquez. 7. Acute respiratory failure due to anaphylactic shock from Bactrim/sulfamethoxazole. CONSULTS: Dr. Collins Olvera. PROCEDURES: Ventilator support. BRIEF HISTORY: Please see the H and P that was done on 12/29/2018. In brief, she is an 88-year- old female who basically was transferred from [place] after she took Bactrim which she was allergic to before. She was given on 12/13/2018. She did not take until the wee hours before respiratory arrest. The patient was transferred to the ICU at [facility] from [facility]. HOSPITAL COURSE: The patient was given IV fluids, respiratory support, and IV steroids. The patient was successfully extubated by Dr. Olvera. She continues to have urinary tract infection with E. coli and is ESBL negative. She was given IV Zosyn. Also 1 blood culture was positive for Streptococcus oralis; the significance is not known. It is also sensitive to all antibiotics. Repeat blood cultures were negative. The patient was weaned off FiO2, able to ambulate. She came back to the baseline. She had 2 episodes of nonsustained ventricular tachycardia which are totally asymptomatic. Followup electrolytes were normal. Hypokalemia was replaced. The patient was instructed to get a medical brace alert for allergic to Bactrim in the near future. I am going to communicate with urologist as well. LABORATORIES: Labs at the time of discharge as follows. White cell count 17, hematocrit 37.5, platelets 247,000. Sodium 143, potassium 3.5, chloride 105, BUN 19, creatinine 0.6, glucose 119. DISCHARGE INSTRUCTIONS FOLLOWS: 1. Tdap 06/02/2018. The patient is refusing flu and pneumonia vaccine. 2. Lotrel 5/20 daily. 3. Tylenol as needed. 4. Vitamin D 50,000 units once a week. 5. Levaquin 500 daily for 10 days. 6. Follow up in my office in 10 days and closely monitoring urinary tract infection, and also follow up on CBC and BMP. cc: MD Luc Lawson MD James E. Boyle, MD
== END 2019-01-05 10:16 | disposition home or self-care (01) | DRG 208 ==
LOC: P.ED 12:12 → ICU 15:30 → 4N 01-01 11:11
PROVIDERS: ADMIT Internal Medicine; ATTEND Internal Medicine
CPT/HCPCS: 31500; 51702; 70450; 71010; 71020; 71045; 71046; 80048; 80053; 81001; 82550; 82805; 82948; 83605; 83735; 83880; 84484; 85025; 87040; 87077; 87088; 87186; 93005; 93010; 94003; 94640; 94761; 96365; 96366; 96368; 96375; 99285; 99291; A9270; C9113; J0171; J0360; J1200; J1650; J1815; J1940; J2250; J2543; J2920; J2930; J3370; J3480; J7030; J7050; J7060; S0164; XXXXX